=== PATIENT | male | born 1950 | race Caucasian/White ===

== ENCOUNTER 2023-03-27 06:44 | Day surgery (SDC) | payer OTHER, SELFPAY ==
[2023-03-27] VITALS (11 sets, daily range): BP systolic 121–142; BP diastolic 74–95; BMI 27.8
--- NOTE | 2023-03-27 07:14 | HP.FOC2 ---
Focused History & Physical
Chief Complaint
HPI:
Chief Complaint: Bilateral inguinal hernias
HPI / Indication for Planned Procedure: Patient is a 72-year-old male who recently underwent open umbilical hernia repair with mesh November 2022. He tolerated this procedure well without perioperative complication. Upon his postoperative recovery
he mentioned as an aside that he is having swelling in the bilateral inguinal regions. Physical examination confirmed the presence of a right and left inguinal hernia. He presents today for scheduled operative correction.
Relevant Past Medical History: Other (Hyperlipidemia, history of DC 1998, hypercholesterolemia, CAD,)
Relevant Social History: Negative and Tobacco Use (Former)
Relevant Family History: Negative
Relevant Past Surgical History: Positive for (Hemorrhoids, cardiac stent, open umbilical herniorrhaphy with mesh 12/12)
Review of Systems
Review of Pertinent Systems: All Systems Negative
Medication
See Medication form for detailed medications: Yes
Medication List (including Herbals & OTC):
aspirin 81 mg tablet,delayed release (Ecotrin Low Strength) 81 mg PO DAILY 02/17/16
carvedilol 3.125 mg tablet 3.125 mg PO BID 02/17/16
meloxicam 7.5 mg tablet 7.5 mg PO DAILY 02/17/16
omeprazole 20 mg capsule,delayed release 20 mg PO DAILY 02/17/16
rosuvastatin 40 mg tablet (Crestor) 40 mg PO HS 02/17/16
Medications Reviewed: Yes
Allergies and Reactions
Patient has Allergies: Yes
Noted Allergies and Reactions:
Allergy/AdvReac Type Severity Reaction Status Date / Time
Iodinated Contrast Media Allergy flushing, Verified 03/24/23 12:13
feeling hot
Pertinent Physical Exam
All Other Systems: Negative
Head/Neck: Normal
Lungs: Normal
Heart: Normal
Abdomen: Other (Bilateral inguinal hernias left larger than right)
Extremities: Normal
Neurological: Normal
Diagnosis / Assessment
72-year-old male presenting for scheduled operative correction symptomatic bilateral inguinal hernias
Plan / Procedure
Robotic assisted laparoscopic repair bilateral inguinal hernias with mesh
Anesthesia/Sedation to be done by Anesthesia Provider: Yes
[2023-03-27] MEDS: TYLENOL 1000 MG PO (08:08)
[2023-03-27] MEDS: NORMOSOL-R 1000 IV (08:14)
--- NOTE | 2023-03-27 09:44 | W.SUR.PREOP ---
Pre-Operative Surgical Note
-
I have examined this patient prior to the performance of the scheduled procedure.
The patient's condition is unchanged from the time of the current History and
Physical and the patient is able to undergo the scheduled procedure.
--- NOTE | 2023-03-27 11:41 | W.IMMPOSTOP ---
Addendum entered and electronically signed by Hilario Bhakta MD 03/29/23 08:19:
#[id number]
Original Note:
Surgical Immed Post Op Note
-
Primary Surgeon: Yony
Assisting Surgeon: Christina SINGER
Pre-op Diagnosis: Bilateral inguinal hernia; left recurrent
Post-op Diagnosis: Bilateral inguinal hernia; left recurrent
Procedure Performed: Robotic assisted laparoscopic repair bilateral inguinal hernias with mesh; 3D max large mid weight mesh
Anesthesia Type: GETA +0.25% Marcaine
Specimen / Cultures: None
Estimated Blood Loss: 8 mL
Complications: None immediate
Operative Findings: Recurrent left direct inguinal hernia. Initial right direct inguinal hernia. 3D max large mid weight mesh repair bilateral.
[2023-03-27] MEDS: SUBLIMAZE 25 MCG IV (11:55)
== END 2023-03-27 14:05 | disposition home or self-care (01) ==
LOC: SDS 06:44
PROVIDERS: ATTENDING PHYSICIAN Surgery
DX: K40.90 Unilateral inguinal hernia, without obstruction or gangrene, not specified as recurrent (principal); K40.91 Unilateral inguinal hernia, without obstruction or gangrene, recurrent
CPT/HCPCS: 49651; 49650; C1781

== ENCOUNTER 2023-05-02 23:44 | Inpatient (IN) | payer OTHER, SELFPAY ==
[2023-05-02] VITALS (7 sets, daily range): BP systolic 115–156; BP diastolic 72–99; BMI 28.5
[2023-05-02 19:16] LABS: % Basophils 0.2 % (0-2); % Eosinophils 0.7 % (0-6); % Immature Granulocytes 0.5 % (0-0.5); % Lymphocytes 13.7 % (20.5-51.1); % Monocytes 7.5 % (1.7-9.3); % Neutrophils 77.4 % (42.2-75.2); Absolute Eosinophils 0.1 10^3/uL (0-0.7); Absolute Immature Granulocytes 0.1 10^3/uL (0-0.05); Absolute Lymphocytes 1.5 10^3/uL (1.2-3.4); Absolute Monocytes 0.8 10^3/uL (0.1-0.6); Absolute Neutrophils 8.3 10^3/uL (1.4-6.5); Hematocrit 40.8 % (39.0-52.0); Hemoglobin 14.2 g/dL (13.0-18.0); Mean Corp Hgb Conc. 34.8 g/dL (33.0-37.0); Mean Corpuscular Hgb 30.7 pg (27.0-31.0); Mean Corpuscular Volume 88.1 fL (80.0-94.0); Mean Platelet Volume 10.3 fL (7.4-10.4); Nucleated Red Blood Cells % 0 % (-); Platelet Count 200 10^3/uL (130-400); Red Blood Cell Count 4.63 10^6/uL (4.70-6.10); Red Cell Dist. Width 12.8 % (11.5-14.5); White Blood Cell Count 10.7 10^3/uL (4.8-10.8)
[2023-05-02 19:37] LABS: ALT (SGPT) 33 U/L (0-50); AST (SGOT) 38 U/L (17-59); Albumin 4.4 g/dl (3.5-5.0); Alkaline Phosphatase 40 U/L (38-126); Blood Urea Nitrogen 22 mg/dl (9-20); Calcium 9.5 mg/dl (8.4-10.2); Carbon Dioxide 27 mmol/L (22-30); Chloride 101 mmol/L (98-107); Estimated Creatinine Clearance 55 ml/min; Glucose 107 mg/dl (70-99); Potassium 4.2 mmol/L (3.5-5.1); Sodium 135 mmol/L (135-145); Total Bilirubin 1.6 mg/dl (0.2-1.3); Total Protein 7.9 g/dl (6.3-8.2)
--- NOTE | 2023-05-02 19:51 | ED.GENMED ---
History of Present Illness
General
Chief Complaint: Chest Pain
Source: patient
Exam Limitations: none
Time Seen by Provider: 05/02/23 19:09
Travel History
Have you had any contact with someone who has COVID-19?: No
Do you have any symptoms of coronavirus? Fever > 100 degrees, chills, cough, shortness of breath, sore throat, loss of taste or smell, muscle aches, or headache?: No
History of Present Illness
History of Present Illness:
This is a 72 year old male that comes in with c/o chest pain. States that he was out doing yard work and he lifted something heavy. States that he was taking his mower apart. Sate that he started with pain in the center of his chest and then the
left chest area. States that he did not eat today and was not drinking any water. States that he did have breakfast. States that he took EMS it was a 7/10 when they got there and he was given Aspirin. Pain went down to a 3 and then he was given
Nitro X 1. States that he has a little something in the left lateral chest. States that he has chills a he had broken out in a sweat. State that he also felt slighly SOB. Denies any fever, abd pain, nausea, vomiting, diarrhea, headache, dizziness,
urinary burning.
Past History
Past History
ED Past Medical History: CAD, GERD, HTN, Hypercholesterolemia, ME and Other (Stomach Ulcers, DDD, Diverticulosis, )
ED Past Surgical History: Cardiac (Stents X 2), Orthopedic (Left shoulder surgery), Urological (Spermatic vein ligation) and Other ( hemorrhoids surgery, Hernia, )
Social History
Tobacco: Former smoker
Alcohol: Occasional
Personal:
Living: with family
Review of Systems
Review of Systems
All Other Systems: ROS reviewed and negative except as documented in HPI and ROS
Constitutional: Reports chills; Denies fever
EENT: Reports no symptoms
Respiratory: Reports trouble breathing; Denies cough
Cardiac: Reports chest pain
ABD/GI: Reports no symptoms; Denies abdominal pain, nausea, vomiting or diarrhea
: Reports no symptoms; Denies dysuria, frequency or urgency
Musculoskeletal: Reports no symptoms
Skin: Reports no symptoms
Neurological: Reports no symptoms; Denies dizzy or headache
Psychiatric: Reports no symptoms
Phy Exam
General Physical Exam
General Presentation: well appearing and no apparent distress
General age: appears stated age
General Skin: warm and dry
General Habitus: normal
General Mental: alert
General Hydration: dry mucous membranes
ENT Exam
ENT Exam: TM's normal, pharynx normal and neck supple
Eye Exam
Eye Exam: EOMI
Cardiovascular Exam
Cardiovascular Exam: regular rate/rhythm, no edema, no murmur and normal peripheral pulses
Pulmonary Exam
Pulmonary Exam: lungs clear, no respiratory distress, no rales, chest non tender, no crackles, no rhonchi, no wheezing and no cough
Gastrointestinal Exam
Gastrointestinal Exam: normal bowel sounds, non tender, soft, no organomegaly, no pulsatile mass and non distended
Musculoskeletal Exam
Musculoskeletal Exam: full ROM and no edema
Skin Exam
Skin Exam: normal color, warm/dry, no rash and no petechia
Psychiatric Exam
Psychiatric Exam: normal mood/affect
Scores
Heart Score for Chest Pain Patients
STEMI patient?: No
History: Moderately Suspicious
ECG: Normal
Age: >/= 65 years
Risk Factors: >/= 3 Risk Factors or History of CAD
Troponin: >/= 3 x Normal Limit
Heart Score for Chest Pain Patients: 7
Heart Score Risk: 72.7 % MACE over next 6 weeks
Course
Orders/Labs/Results
Orders:
Orders
05/02/23 Dinner
NPO
Allow oral meds: Yes
Allow clear liquids: No
NPO with Ice Chips: No
05/02/23 19:08
Electrocardiogram (*1) Urgent
Reason for Study: Chest Pain
EKG- Treatment ONCE
05/02/23 19:11
CMP [Comprehensive Metabolic Panel] Urgent
Complete Blood Count/With Diff Urgent
Troponin I Urgent
05/02/23 19:30
CR Chest - 2 Views Urgent
Comment:
Reason For Exam: Chest pain
05/02/23 19:31
EKG- Treatment ONCE
05/02/23 22:15
Electrocardiogram (*1) Urgent
Reason for Study: Chest Pain
Other Reason for Exam: Repeat with Troponin
05/02/23 22:18
Troponin I Urgent
05/02/23 23:13
Nitroglycerin Sublingual [Nitrostat (Sublingual)] 0.4 mg SL NOW STA
05/02/23 23:14
Nitroglycerin Sublingual [Nitrostat (Sublingual)] 0.4 mg .ROUTE .STK-MED ONE
05/02/23 23:18
Consult Cardiology [CARDIOLOGY CONSULT] Urgent
Consulting Provider: Ramiro Welch
Was physician already notified: Yes
05/02/23 23:27
Admit/Transfer Patient As Directed
Co-Sign Provider:
Level of Care: Inpatient admission
Assign to:: IVU
Physician / Group: kathy malagon
Diagnosis: nstemi
Reason for Hospitalization: nstemi
Expected length of stay greater than two midnights?: Yes
ELOS- Estimated Length of Stay in days: 4
I certify the patient meets the requirements for IP care: Yes
Code Status As Directed
Resuscitation Status: Full Code
05/02/23 23:32
Heparin 4,000 units IV NOW STA
05/02/23 23:45
Heparin 79148 Units/250 ml 25,000 units in 250 ml IV PER PROTOCOL
Weight to be used for heparin protocol in kilograms (kg):: 90.1
Protocol:: Cardiac Tx/Acute Coronary
PTT Goal Range to be used:: PTT 73 to 111 seconds
Order type:: Initial
INITIAL Infusion Dose (UNITS/KG/hr) & then follow protocol:: 12 units/kg/hr
Infusion Dose in UNITS/hr & then follow protocol (UNITS/hr):: 1,000
INFUSION RATE in mL/hr & then follow protocol (mL/hr):: 10
PTT less than or equal to 64 seconds:: Increase rate by 200 units/hr (+ 2 mL/hr)
PTT 64.1 to 72.9 seconds:: Increase rate by 100 units/hr (+ 1 mL/hr)
PTT 73 to 111 seconds:: Target Range. No change in rate.
PTT 111.1 to 130.9 seconds:: Decrease rate by 100 units/hr (- 1 mL/hr)
PTT 131 to 199.9 seconds:: HOLD for 1 hr. Then decrease rate by 200 units/hr (- 2 mL/hr)
PTT greater than or equal to 200 seconds:: HOLD for 2 hrs & Notify Provider. Then decrease by 200 units/hr (-
2 mL/hr)
Lab follow-up:: Each change, PTT q6h until 2 consecutive are therapeutic. Then PTT
daily.
05/05/23 11:00
DC Protocol for Telemetry ONCE
Abnormal Lab Results
05/02/23 05/02/23
19:11 22:18
RBC 4.63 L 10^6/uL
(4.70-6.10)
Abs Immat Gran (auto) 0.1 H 10^3/uL
(0-0.05)
Absolute Neuts (auto) 8.3 H 10^3/uL
(1.4-6.5)
Absolute Monos (auto) 0.8 H 10^3/uL
(0.1-0.6)
Neutrophils % 77.4 H %
(42.2-75.2)
Lymphocytes % 13.7 L %
(20.5-51.1)
BUN 22 H mg/dl
(9-20)
Glucose 107 H mg/dl
(70-99)
Total Bilirubin 1.6 H mg/dl
(0.2-1.3)
Troponin I 0.639 H* D ng/ml
05/02/23 19:11
05/02/23 19:11
Dehydration. Glucose nonfasting. Total pio slightly elevated. Troponin 0.020
Vital Signs
Initial and Last Documented VS:
Initial Vital Signs
Temp Pulse Resp BP Pulse Ox
98.0 F 103 18 156/75 98
05/02/23 19:09 05/02/23 19:09 05/02/23 19:09 05/02/23 19:09 05/02/23 19:09
Last Documented Vital Signs
Temp Pulse Resp BP Pulse Ox
98.0 F 103 18 156/75 98
05/02/23 19:09 05/02/23 19:09 05/02/23 19:09 05/02/23 19:09 05/02/23 19:24
MDM/Problems Addressed
Differential Diagnosis Includes:
ME, Musculoskeletal pain.
MDM/Problems Addressed:
This is a 72 year old male that comes in with c/o chest pain and SOB. States that he was working on his mower and he lifted something heavy. States that he started first with mid sternal chest pian and then it moved to the left chest area. Patient
was given Aspirin by EMS and one nitro and his pain was better.
Will check labs, Chest X-ray
Repeat ECG: rate 89, NSR, NOrmal axis, PVC, Normal QRS, negative for ischemia. checked by Dr Kiser
Back into see patient. Explained that his Second troponin is elevated and that he will need admission. States that he does not have pain but feels sore. Will try a Nitro at this time. Will admit. Hospitalist notified and also Tooth Clerk to see if
they would like Heparin. Will put extruder operator vertical on Consult
Chronic conditions affecting care: CAD
Acute Exacerbation and/or Progression of Chronic Illness: CAD
*Radiology
Radiology exam reviewed: radiology read reviewed (Chest-No acute cardiopulmonary process)
*Pulse Oximetry
Patient hypoxic: no
*EKG
Interpreted by ED Provider?: Yes
Heart Rate: 101
Rate: tachycardiac
Rhythm: sinus and PVC's
Bonnie: normal axis
Interval: normal interval
Ischemia: no ischemia
*Algebra Tutor Interpretation
Rate: tachycardiac
Heart Rate: 107
Rhythm: sinus tachycardia
*Critical Care Note
Total Time (30-74mins, 75-104mins- exclusive of procedures): Not Applicable
ED Attending Note
-
Portions of this chart may have been created with voice recognition software.� Occasional wrong word or��sound alike� substitutions may have occurred due to the inherent limitations of voice recognition software.
Discharge Plan
Departure
Patient Disposition: Admit
Date of Disposition: 05/02/23
Time of Disposition: 23:27
Admit to: Telemetry
Presentation/result/management discussed w/ accepting MD/DO: Hospitalist
Patient with high blood pressure during this ER visit?: Yes
Condition: Good
Covid-19: Not Applicable
Discharge Problem:
Elevated troponin, Non-ST elevated myocardial infarction (non-STEMI)
Interventions
Interventions:
*Risk Screen - Suicide Last Done: 05/02/23 19:09
*General Assessment Last Done: 05/02/23 19:09
*Neglect/Abuse Screening Last Done: 05/02/23 19:09
ED- Fall Risk Assessment Last Done: 05/02/23 19:09
*ED COVID-19 Vaccine History Last Done: 05/02/23 19:09
ED- Cardiac Assessment Last Done: 05/02/23 19:24
[2023-05-02 22:55] LABS: Troponin I 0.639 ng/ml
[2023-05-02] MEDS: NITROSTAT (SUBLINGUAL) 0.400000000000000022 MG SL (23:19)
--- NOTE | 2023-05-02 23:39 | HPS.HSE ---
Addendum entered and electronically signed by Kell Murray MD 05/02/23 23:42:
NPO for potential cath.
Original Note:
Family Physician
-
Family Physician: Andre Moreno
Chief Complaint
-
chest pain
History of Present Illness
72-year-old male past medical history of CAD status post stents in 1998, hypertension, GERD, hypercholesterolemia, stomach ulcers, arthritis, presenting with chest pain. He was out doing yard work and taking his lawnmower apart and started having
pain in the center of his chest on the left. Pain was initially in the center of his chest and sharp.. Pain on the left side described as an ache. He called EMS pain was described as 7 out of 10. He was given aspirin and nitro and pain went down
to 3 out of 10. He did have some sweating. He did feel slightly short of breath. Denies any nausea or vomiting, diarrhea, headache, dizziness or urinary symptoms. Denies any dizziness.
Medical History
Past Medical History
Past Medical History: Reports Other ( CAD status post stents in 1998, hypertension, GERD, hypercholesterolemia, stomach ulcers, arthritis)
Past Surgical History: Reports Other (Cardiac (Stents X 2), Orthopedic (Left shoulder surgery), Urological (Spermatic vein ligation) and Other ( hemorrhoids surgery, Hernia, ))
Social History
Tobacco: Non-smoker
Alcohol: Occasional
Drug: None
Family History
Family History: Not pertinent
Allergies / Home Medications
Allergies reflects when Allergies were last updated in [employer].
Home Medications with original date entered in [employer]
Allergy/Medication List:
Allergies
Allergy/AdvReac Type Severity Reaction Status Date / Time
Iodinated Contrast Media Allergy flushing, Verified 05/02/23 19:08
feeling hot
Home Medications
aspirin 81 mg tablet,delayed release (Ecotrin Low Strength) 81 mg PO DAILY 02/17/16
carvedilol 3.125 mg tablet 3.125 mg PO BID 02/17/16
meloxicam 7.5 mg tablet 7.5 mg PO DAILY 02/17/16
omeprazole 20 mg capsule,delayed release 20 mg PO DAILY 02/17/16
rosuvastatin 40 mg tablet (Crestor) 40 mg PO HS 02/17/16
Review of Systems
-
History Source: Patient
A 12 point ROS was completed and negative except as noted: Yes
Constitutional: Reports No Symptoms
EENT: Reports No Symptoms
Respiratory: Reports See HPI
Cardiac: Reports See HPI
Abdomen/GI: Reports No Symptoms
: Reports No Symptoms
Musculoskeletal: Reports No Symptoms
Skin: Reports No Symptoms
Neurological: Reports No Symptoms
Endocrine: Reports No Symptoms
Hematologic/Lymphatic: Reports No Symptoms
Psych: Reports No Symptoms
Physical Exam
Vital Signs
Vital Signs
Temp Pulse Resp BP Pulse Ox
98.0 F 103 18 156/75 98
05/02/23 19:09 05/02/23 19:09 05/02/23 19:09 05/02/23 19:09 05/02/23 19:24
Physical Exam
General: Well Developed, Well Nourished and No Apparent Distress
HEENT: NormoCephalic, Moist mucous membranes and Atraumatic
Respiratory: Clear
Cardiac: S1/S2 and Regular Rhythm; No Murmur or Rub
GI: Soft, Non Tender, Non Distended and Normal Bowel Sounds; No Organomegaly
Rectal: Deferred by Provider
Musculoskeletal: No Clubbing, No Cyanosis and No Edema
Skin: No Rash
Neuro: Nonfocal/grossly intact
Laboratory Results
-
05/02/23 19:11
05/02/23 19:11
Laboratory Results
Total Bilirubin 1.6 mg/dl (0.2-1.3) H 05/02/23 19:11
AST 38 U/L (17-59) 05/02/23 19:11
ALT 33 U/L (0-50) 05/02/23 19:11
Alkaline Phosphatase 40 U/L (38-126) 05/02/23 19:11
Troponin I 0.639 ng/ml H* D 05/02/23 22:18
Data Reviewed
-
Lab Data: Labs Reviewed by me
Old Records: Reviewed
Impression/Plan
-
IMPRESSION:
PLAN:
# NSTEMI
# History of CAD status post stents
-EKG shows sinus rhythm with PVCs, ST depressions in leads V5, V6
-Troponin 0.6
-Trend troponins
-Chest x-ray unremarkable
-Check echo
-prior echo shows EF 50%
-Check A1c and lipid panel
-Heparin drip
-Continue statin
-Continue Coreg
-Cardiology consulted
Essential hypertension
GERD
-Continue omeprazole
Hypercholesterolemia
-Continue statin
History of stomach ulcers
Arthritis
-Hold meloxicam
Full code
DVT prophylaxis�heparin drip
Regular diet
[2023-05-03] VITALS (14 sets, daily range): BP systolic 97–131; BP diastolic 72–95; BMI 27.7
[2023-05-03] MEDS: HEPARIN 4000 UNITS IV (00:06)
[2023-05-03] MEDS: HEPARIN 25000 UNITS/250 ML IV (00:07)
--- NOTE | 2023-05-03 01:47 | PTCARENOTE ---
Pt rec'd as new admit from ED on stretcher. Pt reports discomfort on left chest as an ache 1 out of 10. No nausea or diaphoresis. Heparin infusing at 1000 units/hr. Sinus on telemetry. adm hx taken. Pt aware of npo status after mn for cath.
[2023-05-03 05:24] LABS: APTT 55.8 Sec (23.4-35.0)
[2023-05-03 05:40] LABS: % Basophils 0.1 % (0-2); % Eosinophils 1.3 % (0-6); % Immature Granulocytes 0.3 % (0-0.5); % Lymphocytes 26.4 % (20.5-51.1); % Monocytes 9.8 % (1.7-9.3); % Neutrophils 62.1 % (42.2-75.2); Absolute Eosinophils 0.1 10^3/uL (0-0.7); Absolute Lymphocytes 1.9 10^3/uL (1.2-3.4); Absolute Monocytes 0.7 10^3/uL (0.1-0.6); Absolute Neutrophils 4.4 10^3/uL (1.4-6.5); Hematocrit 41.3 % (39.0-52.0); Hemoglobin 14.2 g/dL (13.0-18.0); Mean Corp Hgb Conc. 34.4 g/dL (33.0-37.0); Mean Corpuscular Volume 90.2 fL (80.0-94.0); Nucleated Red Blood Cells % 0 % (-); Platelet Count 203 10^3/uL (130-400); Red Blood Cell Count 4.58 10^6/uL (4.70-6.10); Red Cell Dist. Width 12.8 % (11.5-14.5); White Blood Cell Count 7.1 10^3/uL (4.8-10.8)
[2023-05-03 05:48] LABS: ALT (SGPT) 28 U/L (0-50); AST (SGOT) 34 U/L (17-59); Albumin 4.1 g/dl (3.5-5.0); Alkaline Phosphatase 40 U/L (38-126); Blood Urea Nitrogen 23 mg/dl (9-20); Calcium 9.5 mg/dl (8.4-10.2); Carbon Dioxide 27 mmol/L (22-30); Chloride 103 mmol/L (98-107); Estimated Creatinine Clearance 55 ml/min; Glucose 113 mg/dl (70-99); HDL Cholesterol 41 mg/dl; LDL Cholesterol, Calculated 62 mg/dl; Potassium 4.1 mmol/L (3.5-5.1); Sodium 139 mmol/L (135-145); Total Bilirubin 1.5 mg/dl (0.2-1.3); Total Cholesterol 129 mg/dl (50-199); Total Protein 7.2 g/dl (6.3-8.2); Triglyceride 132 mg/dl (10-149); Very Low Density Lipoprotein 26 mg/dl (0-30)
--- NOTE | 2023-05-03 07:35 | CON.CAR ---
Consultation
Consultation Request
Date/Time Consultation Performed: 05/03/23
Requesting Provider: Dr. Murray
Performing Provider: Tiffany Sparks PA-C for Dr. Mckinnon
Reason for Consultation: CP
Medical History
-
Chief Complaint: CP
History of Present Illness:
Patient is a 80-year-old male with past medical history of CAD with remote anterior TN resulting in BMS to LAD in 1998, HLD, history of umbilical hernia repair in 2022 as well as B/L hernia repair ~5 weeks ago who presents to [facility] for
evaluation of chest pain. He states due to his recent hernia repair he has been 'taking it easy.' Yesterday he was doing yard work including picking up sticks and mowing his yard. He was then working on his lawnmower and developed left-sided
chest discomfort. He reports associated shortness of breath and diaphoresis. Denies nausea, vomiting, radiation of pain to neck, jaw, back. He received aspirin at home, then when EMS arrived was given sublingual nitro x 1 with improvement in his
symptoms. He did have additional episode of chest discomfort overnight. He is currently pain-free on IV heparin.
PMH:
CAD with remote anterior TN resulting in BMS to LAD in 1998
HLD
history of umbilical hernia repair in 2022 as well as B/L hernia repair ~5 weeks ago
Past Medical History
Past Medical History: Other (in HPI)
Social History
Tobacco: Former Smoker
Alcohol: Occasional
Personal:
Living: With Family
Employment: Retired
Family History
Family History: CAD (in mother)
Allergies / Home Medications
Allergy/AdvReac Type Severity Reaction Status Date / Time
Iodinated Contrast Media Allergy flushing, Verified 05/02/23 19:08
feeling hot
Medication Instructions Recorded Confirmed Type
aspirin 81 mg tablet,delayed 81 mg PO DAILY 02/17/16 05/02/23 History
release (Ecotrin Low Strength)
carvedilol 3.125 mg tablet 3.125 mg PO BID 02/17/16 05/02/23 History
meloxicam 7.5 mg tablet 7.5 mg PO DAILY 02/17/16 05/02/23 History
omeprazole 20 mg capsule,delayed 20 mg PO DAILY 02/17/16 05/02/23 History
release
rosuvastatin 40 mg tablet (Crestor) 40 mg PO HS 02/17/16 05/02/23 History
Review of Systems
-
History Source: Patient
All other systems: Negative unless noted
Physical Exam
Vital Signs
Temp Pulse Resp BP Pulse Ox
98.3 F 82 16 97/73 95
05/03/23 07:09 05/03/23 07:09 05/03/23 07:09 05/03/23 04:50 05/03/23 07:09
Lab Results
05/03/23 05:01
Troponin I 1.500 ng/ml H* D 05/03/23 05:01
Physical Exam
General: No Apparent Distress and Comfortable
HEENT: Normocephalic, Anicteric and Moist Mucous Membranes
Respiratory: Clear and Non Labored Respirations
Cardiac: S1/S2 and Regular Rhythm
GI: Soft, Non Tender, Non Distended and Normal Bowel Sounds
Musculoskeletal: No Clubbing, No Cyanosis and No Edema
Skin: Warm and Dry
Neuro: AO x 3
Impression / Plan
-
Primary Inspector Barrel: Dr. Margarita Echevarria
Assessment:
Presentation with CP
NSTEMI
CAD with remote anterior TN resulting in BMS to LAD in 1998
HLD
history of umbilical hernia repair in 2022 as well as B/L hernia repair ~5 weeks ago
Echo 05/2020: EF 50%, hypokinetic apex along anterior septum, no significant valvular disease
Lexiscan nuclear stress test 05/2020: Fixed defect in apical septal, apical anterior, apical lateral, apex and apical inferior segments consistent with prior infarction, EF 42%, moderate risk study, no change compared to prior from 2017
Plan:
-Patient presented to [facility] for evaluation of chest pain while completing yard work yesterday
-He is ruled in for NSTEMI with troponin thus far of 1.5. Trend to peak
-EKG SR with PVCs, no acute ST abnormalities
-CXR without acute abnormalities
-Currently chest pain-free
-Continue IV heparin
-N.p.o. for cardiac catheterization today. Procedure explained to patient at bedside
-of note, he reports a history of flushing with IV contrast in past however no rash, itching, SOB.
-Cr stable at 1.3
-Check echo
-Continue aspirin, Crestor, carvedilol
-d/w nursing
Data Reviewed
-
EKG: Tracing Personally Visualized and interpreted
Radiology: Report Reviewed by me
Medical Tests (Nuc Med, Echo etc): Report Reviewed by me
Labs: Labs Reviewed by me
Old Records: Reviewed
--- NOTE | 2023-05-03 07:49 | PTCARENOTE ---
Patient received from hose tender resting comfortably in bed, AAO X 3, denies pain. NSR via cm. Heparin infusing @ 1200units/hr. Patient updated to plan of care for the day including pending cardiac catheterization, in agreement. Remains NPO.
Tiffany Sparks PA-C, to bedside, updated to status. See work list for full assessment and interventions performed.
[2023-05-03] MEDS: ASPIR LOW (ENTERIC COATED) 81 MG PO (08:31)
[2023-05-03] MEDS: COREG 3.125 MG PO ×2 (08:31→20:05)
[2023-05-03] MEDS: PROTONIX 40 MG PO (08:31)
--- NOTE | 2023-05-03 09:20 | CARDSERVLU ---
Echocardiogram with Lumason completed after protocol screening completed. Allergies verified.
Patent IV site: _L AC____
IV site flushed with 0.9% NaCl pre and post administration.
Diluted bolus method utilized to enhance visualization of ventricular ames.
Total volume given: __2.5__ mL
Patient tolerated all procedures well without complications.
[2023-05-03 09:25] LABS: Glycohemoglobin (HgbA1c) 5.8 % (4.0-5.6)
--- NOTE | 2023-05-03 10:04 | CM ---
Addendum entered by Tracy Cabrales 05/03/23 14:20:
Telephone call to Trudy,([phone]) to check on co-pay for Brilinta 90 mg po bid. His co-pay for Brilinta 90 mg po bid is $19,35 for a month and $40.00 for a ninety day supply. He can use the one month free coupon card. Placed the coupon in h is
red discharge folder.
Original Note:
Reviewed chart. Met with Mr. Alcantar to review discharge plans. He states prior to admission he resides with his spouse in a spilt-level home with four steps to enter. He state he has eight steps to get to bedroom/full bathroom. He states he has
four steps to get to the lower level. He states prior to admission he was independent with ambulation and adls. He states he does not have any DME in the home He states he has a prescription plan and uses [facility]. Medical work-up in
progress. The discharge plan is to return home with his spouse when medically stable.
--- NOTE | 2023-05-03 11:23 | PTCARENOTE ---
VS obtained, assessment unchanged. Patient resting comfortably, awaiting CCL.
[2023-05-03 11:55] LABS: APTT 59.6 Sec (23.4-35.0)
--- NOTE | 2023-05-03 12:56 | W.PN.HOSP.TC ---
Today's Communication/Plan
-
Monitor vital signs
see plan
Continue with heparin drip
Cardiac catheterization today
Assessment / Plan
Assessment / Plan
General: Well Developed, Well Nourished and No Apparent Distress
HEENT: NormoCephalic, Moist mucous membranes and Atraumatic
Respiratory: Clear
Cardiac: S1/S2 and Regular Rhythm; No Murmur or Rub
GI: Soft, Non Tender, Non Distended and Normal Bowel Sounds; No Organomegaly
Rectal: Deferred by Provider
Musculoskeletal: No Clubbing, No Cyanosis and No Edema
Skin: No Rash
Neuro: Nonfocal/grossly intact
NSTEMI
# History of CAD status post stents
-EKG shows sinus rhythm with PVCs, ST depressions in leads V5, V6
-troponins peaked 1.5
-Chest x-ray unremarkable
-Check echo 05/02 with EF 49%. Apical septum, apex, apical inferior and apical anterior and mid anteroseptum moderate to severe hypokinesis. Stage II diastolic dysfunction
-Check A1c 5.8
-cw Heparin drip
-Continue statin
-Continue Coreg
-Cardiology following, plan for cardiac catheterization 05/02
Essential hypertension
GERD
-Continue omeprazole
Prediabetes
A1c 5.8; would need lifestyle modifications
Hypercholesterolemia
-Continue statin
History of stomach ulcers
Arthritis
-Hold meloxicam
Full code
DVT prophylaxis�heparin drip
Anticipated Discharge: 24 - 48 hours
Subjective/Interval History
-
Date of Service: May 03, 2023
denies nausea
Objective Data
-
Labs:
Laboratory Results
05/03/23 05/03/23 05/03/23
00:59 05:00 05:01
WBC 7.1 Cancelled
Hgb 14.2 Cancelled
Hct 41.3 Cancelled
Plt Count 203 Cancelled
APTT Cancelled 55.8 H
Sodium 139
Potassium 4.1
Chloride 103
Carbon Dioxide 27
BUN 23 H
Creatinine 1.3
Glucose 113 H
Calcium 9.5
Total Bilirubin 1.5 H
AST 34
ALT 28
Alkaline Phosphatase 40
05/03/23 05/03/23
11:29 18:00
WBC
Hgb
Hct
Plt Count
APTT 59.6 H Pending
Sodium
Potassium
Chloride
Carbon Dioxide
BUN
Creatinine
Glucose
Calcium
Total Bilirubin
AST
ALT
Alkaline Phosphatase
Vital Signs:
Vital Signs
Temp Pulse Resp BP Pulse Ox
97.8 F 68 16 120/81 97
05/03/23 11:38 05/03/23 12:45 05/03/23 11:38 05/03/23 11:15 05/03/23 11:38
I&O
05/02/23 05/03/23 05/04/23
06:59 06:59 06:59
Intake Total 62 / 62
Balance 62 / 62
--- NOTE | 2023-05-03 12:59 | PTCARENOTE ---
electronic lab technician RN's to bedside, heparin infusion discontinued. Patient to CCL via bed w/labeling strategist staff.
[2023-05-03 13:30] LABS: ACT-LR - POC 144 Seconds (116-155)
[2023-05-03 13:53] LABS: ACT-LR - POC 223 Seconds (116-155)
[2023-05-03 14:02] LABS: ACT-LR - POC 271 Seconds (116-155)
[2023-05-03 14:15] LABS: ACT-LR - POC 265 Seconds (116-155)
[2023-05-03] MEDS: NSS 1000 IV (14:54)
--- NOTE | 2023-05-03 15:07 | PTCARENOTE ---
Patient received from CCL s/p stent to prox LAD via R radial approach. R band in place, no bleeding or hematoma noted, distal digits warm and pink, SaO2 96% on RA. to bedside. Patient resting comfortably, denies pain.
--- NOTE | 2023-05-03 16:32 | PTCARENOTE ---
Assumed care of Pt at approx 1600, A,A+O, offers no complaints. R band intact to R radial puncture site. + radial pulse, good CMS to R fingers.
--- NOTE | 2023-05-03 17:54 | ITS.CL.CATH ---
B[facility]acker - Catheterization
Cardiac Catheterization
Procedure Report:
LEFT HEART CATHETERIZATION AND CORONARY INTERVENTION
Date of Procedure: May 03, 2023
Referring: Abril López MD, [facility], [facility]
PROCEDURES:
1. Left heart catheterization, coronary angiogram.
2. Ultrasound-guided access.
3. Successful percutaneous coronary artery intervention to 2 serial proximal to mid LAD stenosis with one 3.5 x 28 mm Xience alicia point drug-eluting stent, successfully postdilated using IVUS guidance with a 4.0 x 20 mm NC trek balloon at 16 horace
distally and a 4.5 x 12 mm NC trek balloon at 18 horace proximally with an excellent angiographic and IVUS guided result.
INDICATION: NSTEMI
ACCESS: Right radial artery, 6 Telugu sheath, under ultrasound guidance
HEMODYNAMICS : (mmHg)
AO (s/d) : 117/79
LV (s/d) : 115/8
LVEDP : 10
CORONARY FINDINGS
DOMINANCE: Left
LEFT MAIN: The left main artery is a large-caliber vessel which gives rise to the left into descending artery and the left circumflex artery. There is mild diffuse atherosclerotic plaque.
LEFT ANTERIOR DESCENDING: The left anterior descending artery is a medium to large caliber vessel which gives rise to 2 major diagonal branches. There are 2 serial lesions in the proximal LAD, 170 to 80% proximally and another 70% distally. These
were thought to be the culprit of presenting NSTEMI given wall motion abnormalities noted on echo and thus decision was made to intervene on this. There is also 40 to 50% in-stent restenosis in the mid to distal LAD stents from 1998
CIRCUMFLEX: The left circumflex artery is a medium to large caliber dominant vessel which gives rise to 1 medium caliber OM1 and multiple small to medium caliber left posterolateral branches and the left posterior descending artery. OM1 has a 50 to
60% stenosis in the proximal portion
RIGHT CORONARY ARTERY: The right coronary artery is a small to medium caliber nondominant vessel with moderate diffuse atherosclerotic plaque.
I reviewed the coronary angiogram while patient was on the table with one of my senior interventional partners, Dr. Praveen Ireland given no specific lesion appeared to be an obvious culprit for NSTEMI. Upon my review especially with the
echocardiogram showing wall motions in the LAD territory, we concluded that the 2 serial lesions in the proximal LAD are probable culprit and thus decision was made to move forward with percutaneous coronary artery intervention onto this.
CORONARY INTERVENTION: The left coronary artery was selectively engaged using a 6 Telugu EBU 3.5 guide catheter. A 190 cm high torque floppy wire was carefully advanced across the proximal LAD stenoses and advanced into the distal LAD. The
proximal LAD stenoses were predilated using a 3.0 x 20 mm semi-compliant balloon. Both of these lesions were stented using one 3.5 x 28 mm Xience alicia point drug-eluting stent which was postdilated successfully using IVUS guidance with a 4.0 x 20 mm
NC trek balloon at 16 horace distally and a 4.5 x 12 mm NC trek balloon at 18 horace proximally with an excellent angiographic result and MIRIAN-3 flow. The patient was loaded with 20 mg of Brilinta at the end of the case given he presented with an NSTEMI.
No acute complications were noted.
SEDATION: 85 minutes of procedural sedation was utilized. An independent medical dosimetrist was present to assist with and help manage the patient's level of consciousness and physiologic status.
RADIATION SUMMARY: Fluoro Time (min): 15.1, Dose (mGy): 998.97, DAP (Gy.cm2) : 80.6
Closure Device: Vascular band over right radial artery, 11 cc of air.
CONCLUSIONS
1. Left dominant circulation.
2. Successful percutaneous coronary artery intervention to 2 serial proximal to mid LAD stenosis with one 3.5 x 28 mm Xience alicia point drug-eluting stent, successfully postdilated using IVUS guidance with a 4.0 x 20 mm NC trek balloon at 16 horace
distally and a 4.5 x 12 mm NC trek balloon at 18 horace proximally with an excellent angiographic and IVUS guided result.
3. There are 2 serial lesions in the proximal LAD, 170 to 80% proximally and another 70% distally. These were thought to be the culprit of presenting NSTEMI given wall motion abnormalities noted on echo and thus decision was made to intervene on
this. There is also 40 to 50% in-stent restenosis in the mid to distal LAD stents from 1998.
4. OM1 has a 50 to 60% stenosis in the proximal portion.
5. Normal LVEDP.
RECOMMENDATIONS
1. Wean radial band per protocol.
2. Uninterrupted dual antiplatelet therapy with daily baby aspirin and Brilinta 90 mg twice daily, high intensity statin and beta-eliu as tolerated.
3. Aggressive management of cardiovascular risk factors.
4. Referral for outpatient cardiac rehab.
Copy to: Abril López MD, FACC, [facility]
--- NOTE | 2023-05-03 20:00 | PTCARENOTE ---
Assumed care of patient. NSR. VSS. All air removed out of TR band (right radial) by off going nurse at 1900. TR band removed at 1999. Site cleansed. Sterile 2x2 placed with tegaderm. + pulse, no hematoma, warm, and good sensation. IVF stopped.
Assessment per nursing flowsheet. Pt independent in room. Reviewed brilinta and coreg.
[2023-05-03] MEDS: BRILINTA 90 MG PO (20:05)
[2023-05-03] MEDS: CRESTOR 40 MG PO (22:02)
[2023-05-04 03:23] VITALS: BP 121/69
[2023-05-04 03:58] LABS: Hematocrit 39.4 % (39.0-52.0); Hemoglobin 13.6 g/dL (13.0-18.0); Mean Corp Hgb Conc. 34.5 g/dL (33.0-37.0); Mean Corpuscular Hgb 30.7 pg (27.0-31.0); Mean Corpuscular Volume 88.9 fL (80.0-94.0); Mean Platelet Volume 10.7 fL (7.4-10.4); Platelet Count 194 10^3/uL (130-400); Red Blood Cell Count 4.43 10^6/uL (4.70-6.10); Red Cell Dist. Width 13.1 % (11.5-14.5); White Blood Cell Count 6.3 10^3/uL (4.8-10.8)
[2023-05-04 04:23] LABS: Blood Urea Nitrogen 19 mg/dl (9-20); Calcium 8.6 mg/dl (8.4-10.2); Carbon Dioxide 24 mmol/L (22-30); Chloride 107 mmol/L (98-107); Estimated Creatinine Clearance 59 ml/min; Glucose 109 mg/dl (70-99); HDL Cholesterol 37 mg/dl; LDL Cholesterol, Calculated 62 mg/dl; Potassium 4.3 mmol/L (3.5-5.1); Sodium 136 mmol/L (135-145); Total Cholesterol 124 mg/dl (50-199); Triglyceride 129 mg/dl (10-149); Very Low Density Lipoprotein 25 mg/dl (0-30); eGFR > 60.00
--- NOTE | 2023-05-04 07:05 | PTCARENOTE ---
Assumed care of patient. Patient ambulating in room. Batteries changed in tele box. Instructed to order breakfast. Agree with previous assessment. Patient's questions answered. Radial site CDI. Call light in reach. Instructed patient to call
with any needs.
--- NOTE | 2023-05-04 07:36 | W.PN.CARDCBS ---
Addendum entered and electronically signed by Abril López MD 05/04/23 11:23:
I saw and examined the patient.
The Spreading Machine Operator's note was reviewed and I agree with the note.
Comment: Overall patient is doing well and does not offer any significant complaints today. Upon walking this morning he did have transient lightheadedness which since then resolved. Blood pressures have been stable. No recurrent chest discomfort
or shortness of breath.
No major events noted on telemetry except 1 short 4 beat run of NSVT. Vital signs and lab work reviewed. Patient is a well-appearing gentleman in no acute distress, normal S1 and S2, no murmurs, rubs or gallops, lungs are clear to auscultation
bilaterally, right radial arterial access site with dressing in place which is clean, dry and intact without evidence of hematoma or bruit. Warm extremities without significant edema.
Recommendations:
1. Status post LAD PCI in the setting of NSTEMI, continue uninterrupted dual antiplatelet therapy with daily baby aspirin and Brilinta along with high intensity statin and beta-eliu.
2. Echocardiogram with mildly reduced LV systolic function, LVEF of 45 to 50% with wall motion abnormalities in the LAD territory. Given transient lightheadedness this morning, we will not further uptitrate goal-directed medical therapy for mild
ischemic cardiomyopathy however upon follow-up consideration should be made to add an GABRIELLE inhibitor or ARB plus minus Aldactone plus minus increasing carvedilol dose plus minus SGLT2 inhibitor depending on what hemodynamics will allow.
3. Referral for outpatient cardiac rehab.
4. Aggressive management of cardiovascular risk factors.
5. Stable for discharge from a cardiac standpoint with plan for follow-up with outpatient cardiology.
Discussed plan in detail with patient and his , Diamond over the phone. Communicated results of the heart catheterization with his primary outpatient diamond grinder yesterday evening.
Abril López MD, [facility]
Original Note:
Today's Communication / Plan
-
s/p LAD PCI x2
continue asa, brilinta, coreg, crestor, protonix
cardiac rehab
OP cardiac follow up
Impression / Plan
-
Primary Quality Control Analyst: Dr. Margarita Echevarria
Assessment:
Presentation with CP
NSTEMI, peak trop 1.5 s/p LAD PCI x2 05/03/23
CAD with remote anterior CT resulting in BMS to LAD in 1998
HLD
history of umbilical hernia repair in 2022 as well as B/L hernia repair ~5 weeks ago
Echo 05/2020: EF 50%, hypokinetic apex along anterior septum, no significant valvular disease
Lexiscan nuclear stress test 05/2020: Fixed defect in apical septal, apical anterior, apical lateral, apex and apical inferior segments consistent with prior infarction, EF 42%, moderate risk study, no change compared to prior from 2016
ECHO 05/03/23: EF 49%, apical septum, apex, apical inferior, apical anterior, mid anteroseptum with mod to severe hypokinesis, stage 2 diastolic dysfunction, mildly dilated aortic root, no sig valvular disease
Plan:
-Patient presented to [facility] for evaluation of chest pain while completing yard work yesterday
-He ruled in for NSTEMI with peak trop 1.5.
-s/p cardiac cath 05/02 resulting in LAD PCI x2
-echo with results as above, stable compared to prior
-Cr stable at 1.2
-Continue aspirin, brilinta, carvedilol
-LDL 62. continue crestor 40mg QPM
-stop meloxicam
-cardiac rehab
-ok for DC to home later today from cardiac standpoint
-OP cardiac follow up arranged
-d/w nursing
Progress Note - Quality Control Analyst
Subjective
Date of Service: May 04, 2023
No chest pain, shortness of breath, palpitations overnight
Objective
Labs:
05/04/23 03:30
05/04/23 03:30
Labs
Hgb 13.6 g/dL (13.0-18.0) 05/04/23 03:30
Hct 39.4 % (39.0-52.0) 05/04/23 03:30
Plt Count 194 10^3/uL (130-400) 05/04/23 03:30
APTT Cancelled 05/03/23 18:00
Sodium 136 mmol/L (135-145) 05/04/23 03:30
Potassium 4.3 mmol/L (3.5-5.1) 05/04/23 03:30
BUN 19 mg/dl (9-20) 05/04/23 03:30
Creatinine 1.2 mg/dL (0.7-1.3) 05/04/23 03:30
Glucose 109 mg/dl (70-99) H 05/04/23 03:30
Troponins
05/02/23 05/02/23 05/03/23
19:11 22:18 05:01
Troponin I 0.020 0.639 H* D 1.500 H* D
05/03/23
11:29
Troponin I 1.380 H*
Vital Signs and I&O:
Vital Signs
Temp Pulse Resp BP Pulse Ox
97.8 F 61 16 121/69 96
05/04/23 04:07 05/04/23 04:00 05/04/23 04:07 05/04/23 03:23 05/04/23 04:07
Vital Signs
Temp Pulse Resp BP Pulse Ox
97.8 F 61 16 121/69 96
05/04/23 04:07 05/04/23 04:00 05/04/23 04:07 05/04/23 03:23 05/04/23 04:07
Intake & Output
05/01/23 05/02/23 05/03/23 05/04/23
07:59 07:59 07:59 07:59
Intake Total 443 / 443
Balance 443 / 443
Physical Exam
Physical Exam
GEN: No distress, awake, alert, oriented x3
HEENT: supple, anicteric, mmm, eomi
LUNGS: CTA B/L, no wheezes/rales
CV: Reg, S1/S2, no murmur
ABD: soft, BS+, NT/ND
EXT: No cyanosis, clubbing, edema
NEURO: Gross non-focal
SKIN: Warm, pink, dry. No rash. R radial site c/d/i
[2023-05-04 07:46] VITALS: BP 114/77
[2023-05-04] MEDS: BRILINTA 90 MG PO (08:10)
[2023-05-04] MEDS: ASPIR LOW (ENTERIC COATED) 81 MG PO (08:10)
[2023-05-04] MEDS: PROTONIX 40 MG PO (08:10)
[2023-05-04] MEDS: COREG 3.125 MG PO (08:10)
[2023-05-04 11:45] VITALS: BP 116/85
--- NOTE | 2023-05-04 12:04 | W.PN.HOSP.TC ---
Today's Communication/Plan
-
Monitor vital signs see plan
Continue with aspirin and Brilinta
Stop meloxicam
DC today
time of discharge 37 minutes
Assessment / Plan
Assessment / Plan
General: Well Developed, Well Nourished and No Apparent Distress
HEENT: NormoCephalic, Moist mucous membranes and Atraumatic
Respiratory: Clear
Cardiac: S1/S2 and Regular Rhythm; No Murmur or Rub
GI: Soft, Non Tender, Non Distended and Normal Bowel Sounds; No Organomegaly
Rectal: Deferred by Provider
Musculoskeletal: No Clubbing, No Cyanosis and No Edema
Skin: No Rash
Neuro: Nonfocal/grossly intact
NSTEMI
# History of CAD status post stents
-EKG shows sinus rhythm with PVCs, ST depressions in leads V5, V6
-troponins peaked 1.5
-Chest x-ray unremarkable
-Check echo 05/02 with EF 49%. Apical septum, apex, apical inferior and apical anterior and mid anteroseptum moderate to severe hypokinesis. Stage II diastolic dysfunction
-Check A1c 5.8
off hep gtt
-Continue statin
-Continue Coreg
-Cardiology following,s/p cardiac catheterization 05/02 resulting in LAD PCI x2
Pain now on aspirin, Brilinta
Essential hypertension
GERD
-Continue omeprazole
Prediabetes
A1c 5.8; would need lifestyle modifications
Hypercholesterolemia
-Continue statin
History of stomach ulcers
Arthritis
-stop meloxicam
Full code
DVT prophylaxis
Anticipated Discharge: Today
Subjective/Interval History
-
Date of Service: May 04, 2023
denies chest pain
Objective Data
-
Labs:
Laboratory Results
05/04/23
03:30
WBC 6.3
Hgb 13.6
Hct 39.4
Plt Count 194
Sodium 136
Potassium 4.3
Chloride 107
Carbon Dioxide 24
BUN 19
Creatinine 1.2
Glucose 109 H
Calcium 8.6
Vital Signs:
Vital Signs
Temp Pulse Resp BP Pulse Ox
98.4 F 71 20 116/85 97
05/04/23 11:43 05/04/23 11:45 05/04/23 11:43 05/04/23 11:45 05/04/23 11:43
I&O
05/03/23 05/04/23 05/05/23
06:59 06:59 06:59
Intake Total 443 / 443
Balance 443 / 443
--- NOTE | 2023-05-04 12:12 | W.DCSUMMARY ---
Discharge Summary
Discharge Data
Date of Admission: 05/02/23
Date of Discharge: 05/04/23
-
Pending Results: No
Hospital Course
72-year-old male with past medical history of CAD, GERD, essential hypertension, hyperlipidemia, PUD, arthritis came to the hospital with chest discomfort. EKG on admission was consistent with ST depressions. Patient was admitted for non-ST
elevation myocardial infarction. Echocardiogram was done which showed EF of 49% with apical and septal hypokinesis. Patient went for cardiac catheterization resulting in LAD PCI x 2. Patient was seen by cardiology throughout hospitalization.
Initially patient was on heparin drip. Postcatheterization patient was started on Brilinta along with his aspirin. After catheterization his symptoms improved. Once patient started to feel better, he was then discharged home with instructions to
follow-up with all his physicians outpatient.
Discharge Plan
-
Patient Disposition: Home (Routine Discharge)
Discharge Diagnosis/Procedures: Non-ST elevation myocardial infarct, Angioplasty with stent to LAD
Ischemic cardiomyopathy
Prediabetes
Diet: Low Cholesterol
Activity: As tolerated
Driving Restrictions: No driving for 24 hours
Bathing Restrictions: None
Other Services: Cardiac Rehab
Stand Alone Forms: DC Instructions- Cath/EP Lab
Referrals:
[facility]. Cardiac Rehab [Outside] - 05/31/23 10:00 am
(Cardiac Rehab Orientation appointment is on 05/31/23 (W) at 10:00 am
The Cardiac Rehab gym is located on the first floor of the [facility].)
Margarita Ehcevarria MD [Active] - 07/13/23 11:20 am
Andre Moreno MD [Family Provider] - in less than 1 week
Additional Discharge Medication Instructions: Stop meloxicam
Prescriptions:
New
Brilinta 90 mg Tablet
90 mg PO BID Qty: 60 0RF
nitroglycerin 0.4 mg Tablet, Sublingual
0.4 mg sublingual [id number] PRN (Reason: chest pain) Qty: 30 0RF
Continued
aspirin [Ecotrin Low Strength] 81 MG tablet,delayed release (DR/EC)
81 mg PO DAILY
carvedilol 3.125 MG tablet
3.125 mg PO BID
omeprazole 20 MG capsule,delayed release(DR/EC)
20 mg PO DAILY
rosuvastatin [Crestor] 40 MG tablet
40 mg PO HS
Discontinued
meloxicam 7.5 MG tablet
7.5 mg PO DAILY
Discharge Orders:
Discharge Patient (As Directed); Ordered 05/04/23
Ordered By: Luis Alberto Jaramillo
Care Plan Goals
Care Plan Goals:
Problem: Readiness for enhanced knowledge related to diagnosis and treatment plan
Goal: Understand your diagnosis and treatment plan needs, including medications if applicable.
Instructions: Know your diagnosis, underlying causes and treatment plan options, including medications if applicable. Consult with your health care team to learn about your diagnosis and treatment plan, including medications if applicable.
Discharge Date and Time
Discharge Date/Time: 05/04/23 13:16
== END 2023-05-04 13:16 | disposition home or self-care (01) | DRG 322 ==
LOC: IVU 23:44
PROVIDERS: Clinical Nurse Specialist Family Health; Internal Medicine Cardiovascular Disease; Nurse Practitioner Adult Health; ADMITTING PHYSICIAN Hospitalist; ATTENDING PHYSICIAN Internal Medicine; EMERGENCY PHYSICIAN Emergency Medicine; FAMILY PHYSICIAN Family Medicine; OTHER PHYSICIAN Internal Medicine Interventional Cardiology
PROC: 4A023N7 Measurement of Cardiac Sampling and Pressure, Left Heart, Percutaneous Approach (ICD-10-PCS; 2023-05-03)
PROC: 027034Z Dilation of Coronary Artery, One Artery with Drug-eluting Intraluminal Device, Percutaneous Approach (ICD-10-PCS; 2023-05-03)
PROC: B240ZZ3 Ultrasonography of Single Coronary Artery, Intravascular (ICD-10-PCS; 2023-05-03)
PROC: B2151ZZ Fluoroscopy of Left Heart using Low Osmolar Contrast (ICD-10-PCS; 2023-05-03)
PROC: B2111ZZ Fluoroscopy of Multiple Coronary Arteries using Low Osmolar Contrast (ICD-10-PCS; 2023-05-03)
DX: I21.4 Non-ST elevation (NSTEMI) myocardial infarction (principal); T82.855A Stenosis of coronary artery stent, initial encounter; I25.10 Atherosclerotic heart disease of native coronary artery without angina pectoris; K21.9 Gastro-esophageal reflux disease without esophagitis; E78.00 Pure hypercholesterolemia, unspecified; M19.90 Unspecified osteoarthritis, unspecified site; I10 Essential (primary) hypertension; I25.5 Ischemic cardiomyopathy; R73.03 Prediabetes; Y83.1 Surgical operation with implant of artificial internal device as the cause of abnormal reaction of the patient, or of later complication, without mention of misadventure at the time of the procedure; I25.2 Old myocardial infarction; Z79.82 Long term (current) use of aspirin; Z79.899 Other long term (current) drug therapy; Z82.49 Family history of ischemic heart disease and other diseases of the circulatory system; Z87.11 Personal history of peptic ulcer disease; Z87.891 Personal history of nicotine dependence; Z95.5 Presence of coronary angioplasty implant and graft
CPT/HCPCS: 71046; 76937; 80048; 80053; 80061; 83036; 84484; 85025; 85027; 85347; 85730; 92978; 93005; 93306; 93458; 99152; 99153; 99285; C1725; C1753; C1769; C1874; C1894; C9600; Q9950; Q9967

== ENCOUNTER 2023-06-19 09:58 | Outpatient (RCR) | payer OTHER, SELFPAY | END 2023-06-19 23:59 | disposition home or self-care (01) | LOC: CRHB 09:58 | PROVIDERS: ATTENDING PHYSICIAN Internal Medicine Cardiovascular Disease; FAMILY PHYSICIAN Family Medicine | DX: I21.4 Non-ST elevation (NSTEMI) myocardial infarction (principal); Z95.5 Presence of coronary angioplasty implant and graft; I25.10 Atherosclerotic heart disease of native coronary artery without angina pectoris | CPT/HCPCS: G0422; G0423 ==

== ENCOUNTER 2023-07-21 11:37 | Outpatient (RCR) | payer OTHER, SELFPAY | END 2023-07-21 23:59 | disposition home or self-care (01) | LOC: CRHB 11:37 | PROVIDERS: ATTENDING PHYSICIAN Internal Medicine Cardiovascular Disease; FAMILY PHYSICIAN Family Medicine | DX: I21.4 Non-ST elevation (NSTEMI) myocardial infarction (principal); Z95.5 Presence of coronary angioplasty implant and graft; I25.10 Atherosclerotic heart disease of native coronary artery without angina pectoris | CPT/HCPCS: G0422; G0423 ==

== ENCOUNTER 2023-08-16 16:42 | Outpatient (RCR) | payer OTHER, SELFPAY | END 2023-08-16 23:59 | disposition home or self-care (01) | LOC: CRHB 16:42 | PROVIDERS: ATTENDING PHYSICIAN Internal Medicine Cardiovascular Disease; FAMILY PHYSICIAN Family Medicine | DX: I25.10 Atherosclerotic heart disease of native coronary artery without angina pectoris (principal); Z95.5 Presence of coronary angioplasty implant and graft; I25.2 Old myocardial infarction | CPT/HCPCS: G0422; G0423 ==

== ENCOUNTER → 2024-05-15 11:07 | Outpatient (REF) | payer OTHER, SELFPAY | LOC: HWRCS 11:07 | PROVIDERS: ATTENDING PHYSICIAN Internal Medicine Cardiovascular Disease; FAMILY PHYSICIAN Family Medicine | DX: I25.10 Atherosclerotic heart disease of native coronary artery without angina pectoris (principal) | CPT/HCPCS: 93306 ==

== ENCOUNTER 2024-10-14 15:31 | Inpatient (IN) | payer OTHER, SELFPAY ==
[2024-10-14] VITALS (8 sets, daily range): BP systolic 109–146; BP diastolic 71–95; BMI 26.0; BMI 24.9
--- NOTE | 2024-10-14 13:10 | ED.GENMED ---
History of Present Illness
<Marianela Doll PA-C - Last Filed: 10/14/24 17:50>
General
Chief Complaint: Chest Pain
Source: patient
Exam Limitations: none
Time Seen by Provider: 10/14/24 12:53
Nursing documentation reviewed up to this point in time: agreed with
History of Present Illness
History of Present Illness:
Patient is a 74-year-old male with history of CAD s/p stent placement, hyperlipidemia who presents to the emergency department for evaluation of chest pain. Patient reports onset of chest pressure earlier today while at the gym approximately 20
minutes following a 50-minute cardiac workout on the elliptical. He describes a pressure in his mid chest without radiation to arm, neck, back. He reports mild associated lightheadedness however denies shortness of breath, diaphoresis, nausea.
He stopped his workout early and had at home where he took 1 sublingual nitroglycerin with improvement chest pain. He did contact his modeler office who recommended evaluation in the emergency department.
Of note�patient does report similar symptoms about 4 times this past month following cardio workouts at the gym. He states he goes to the gym 5 days a week and does cardio Monday, Monday, Monday.
By my assessment�patient is chest pain-free.
He does have a history of HI x 2 in the past with stent placement, most recently in April 2023. His primary modeler is Dr. Margarita Echevarria.
Past History
<Marianela Doll PA-C - Last Filed: 10/14/24 17:50>
Past History
ED Past Medical History: CAD, GERD, HTN, Hypercholesterolemia, HI and Other (Stomach Ulcers, DDD, Diverticulosis, )
ED Past Surgical History: Cardiac (Stents X 2), Orthopedic (Left shoulder surgery), Urological (Spermatic vein ligation) and Other ( hemorrhoids surgery, Hernia, )
Social History
Tobacco: Former smoker
Alcohol: Occasional
Personal:
Living: with family
Review of Systems
<Marianela Doll PA-C - Last Filed: 10/14/24 17:50>
Review of Systems
Allergies reviewed?: Yes
All Other Systems: ROS reviewed and negative except as documented in HPI and ROS
Phy Exam
<Marianela Doll PA-C - Last Filed: 10/14/24 17:50>
Physical Exam
Physical Exam:
Vitals: Mildly hypertensive, otherwise vital signs stable. Afebrile
General: Patient is well appearing, no acute distress
Skin: Warm and dry, no rashes or lesions
Head: Normocephalic, atraumatic
Eyes: Sclera nonicteric. EOMs intact. No nystagmus.
Throat: Protecting airway
Neck: Normal ROM, no cervical spine tenderness, no meningismus
Cardiac: Regular rate and rhythm, no murmurs. No reproducible chest wall tenderness. 2+ palpable radial pulses bilaterally
Pulm: Normal respiratory effort, no wheezes, rales, rhonchi heard on exam
Abdomen: No abdominal tenderness.
Extremities: No evidence of cyanosis or edema
Neuro: AAOx3. Grossly intact.
Psychiatric: Normal affect.
Scores
<Marianela Doll PA-C - Last Filed: 10/14/24 17:50>
Heart Score for Chest Pain Patients
STEMI patient?: No
History: Moderately Suspicious
ECG: Nonspecific Repolarization
Age: >/= 65 years
Risk Factors: >/= 3 Risk Factors or History of CAD
Troponin: >/= 3 x Normal Limit
Heart Score for Chest Pain Patients: 8
Heart Score Risk: 72.7 % MACE over next 6 weeks
Course
<Marianela Doll PA-C - Last Filed: 10/14/24 17:50>
Orders/Labs/Results
Orders:
Orders
10/14/24 12:37
ECG [Electrocardiogram (*1)] Urgent
Reason for Study: Chest Pain
10/14/24 12:38
EKG- Treatment ONCE
10/14/24 13:06
CR Chest - 2 Views Urgent
Comment:
Reason For Exam: chest pressure
10/14/24 13:26
Complete Blood Count/With Diff Urgent
Comprehensive Metabolic Panel Urgent
Troponin I Urgent
10/14/24 14:01
CARDIOLOGY CONSULT Urgent
Consulting Provider: Andre Moreno
Was physician already notified: Yes
10/14/24 14:21
Aspirin Chewable [Low Strength Aspirin] 243 mg PO NOW STA
Heparin 4,000 units IV NOW STA
Nursing to Place Non Medication Order As Directed
Physician Order: PTT 6 hours after initial start of Heparin infusion
Above order entered?: Yes
10/14/24 14:30
Heparin 34729 Units/250 ml 25,000 units in 250 ml IV PER PROTOCOL
Weight to be used for heparin protocol in kilograms (kg):: 82.1
Protocol:: Cardiac Tx/Acute Coronary
PTT Goal Range to be used:: PTT 73 to 111 seconds
Order type:: Initial
INITIAL Infusion Dose (UNITS/KG/hr) & then follow protocol:: 12 units/kg/hr
Infusion Dose in UNITS/hr & then follow protocol (UNITS/hr):: 1,000
INFUSION RATE in mL/hr & then follow protocol (mL/hr):: 10
PTT less than or equal to 64 seconds:: Increase rate by 200 units/hr (+ 2 mL/hr)
PTT 64.1 to 72.9 seconds:: Increase rate by 100 units/hr (+ 1 mL/hr)
PTT 73 to 111 seconds:: Target Range. No change in rate.
PTT 111.1 to 130.9 seconds:: Decrease rate by 100 units/hr (- 1 mL/hr)
PTT 131 to 199.9 seconds:: HOLD for 1 hr. Then decrease rate by 200 units/hr (- 2 mL/hr)
PTT greater than or equal to 200 seconds:: HOLD for 2 hrs & Notify Provider. Then decrease by 200 units/hr (-
2 mL/hr)
Lab follow-up:: Each change, PTT q6h until 2 consecutive are therapeutic. Then PTT
daily.
10/14/24 15:11
Admit/Transfer Patient As Directed
Co-Sign Provider:
Level of Care: Inpatient admission
Assign to:: IVU
Physician / Group: Kell Murray
Diagnosis: chest pain, NSTEMI, unstable angina
Reason for Hospitalization: chest pain, NSTEMI, unstable angina
Expected length of stay greater than two midnights?: Yes
ELOS- Estimated Length of Stay in days: 3
I certify the patient meets the requirements for IP care: Yes
PRN Pain Medication Management As Directed
May give lesser potent ordered pain med per pt: Yes
preference::
Protocol:: Medication orders for pain may be administered in a
manner that supports deferring to patient preference
when the pt is:
- Requesting an ordered lesser potent pain medication.
Least to most potent pain medications are defined
as: acetaminophen < NSAID < tramadol < opioids
(morphine, oxycodone, hydromorphone).
- Requesting a lesser dose of the same medication IF
ORDERED.
- Requesting a less intrusive route of administration
if both routes are prescribed by the provider (PO <
IV).
10/14/24 15:12
Code Status As Directed
Resuscitation Status: Full Code
10/14/24 15:18
Echo 2D MMode Color/Doppler Urgent
Reason for Study: chest pain, elevated trop
10/14/24 20:45
PTT Routine
Abnormal Lab Results
10/14/24
13:26
MCHC 32.9 L g/dL
(33.0-37.0)
Absolute Lymphs (auto) 1.0 L 10^3/uL
(1.2-3.4)
Neutrophils % 80.0 H %
(42.2-75.2)
Lymphocytes % 13.0 L %
(20.5-51.1)
Glucose 105 H mg/dl
(70-99)
Total Bilirubin 1.4 H mg/dl
(0.2-1.3)
Alkaline Phosphatase 30 L U/L
(38-126)
Troponin I 0.277 H* ng/ml
10/14/24 13:26
10/14/24 13:26
Vital Signs
Initial and Last Documented VS:
Initial Vital Signs
Temp Pulse Resp BP Pulse Ox
98.1 F 65 16 135/86 99
10/14/24 12:45 10/14/24 12:45 10/14/24 12:45 10/14/24 12:45 10/14/24 12:45
Last Documented Vital Signs
Temp Pulse Resp BP Pulse Ox
98.1 F 72 14 132/73 96
10/14/24 12:45 10/14/24 16:45 10/14/24 16:45 10/14/24 16:00 10/14/24 16:30
<Mason Arauz MD - Last Filed: 10/14/24 14:24>
Orders/Labs/Results
Orders:
Orders
10/14/24 12:37
ECG [Electrocardiogram (*1)] Urgent
Reason for Study: Chest Pain
10/14/24 12:38
EKG- Treatment ONCE
10/14/24 13:06
CR Chest - 2 Views Urgent
Comment:
Reason For Exam: chest pressure
10/14/24 13:26
Complete Blood Count/With Diff Urgent
Comprehensive Metabolic Panel Urgent
Troponin I Urgent
10/14/24 14:01
CARDIOLOGY CONSULT Urgent
Consulting Provider: Andre Moreno
Was physician already notified: Yes
10/14/24 14:21
Aspirin Chewable [Low Strength Aspirin] 243 mg PO NOW STA
Heparin 4,000 units IV NOW STA
Nursing to Place Non Medication Order As Directed
Physician Order: PTT 6 hours after initial start of Heparin infusion
Above order entered?: Yes
10/14/24 14:30
Heparin [id number] Units/250 ml 25,000 units in 250 ml IV PER PROTOCOL
Weight to be used for heparin protocol in kilograms (kg):: 82.1
Protocol:: Cardiac Tx/Acute Coronary
PTT Goal Range to be used:: PTT 73 to 111 seconds
Order type:: Initial
INITIAL Infusion Dose (UNITS/KG/hr) & then follow protocol:: 12 units/kg/hr
Infusion Dose in UNITS/hr & then follow protocol (UNITS/hr):: 1,000
INFUSION RATE in mL/hr & then follow protocol (mL/hr):: 10
PTT less than or equal to 64 seconds:: Increase rate by 200 units/hr (+ 2 mL/hr)
PTT 64.1 to 72.9 seconds:: Increase rate by 100 units/hr (+ 1 mL/hr)
PTT 73 to 111 seconds:: Target Range. No change in rate.
PTT 111.1 to 130.9 seconds:: Decrease rate by 100 units/hr (- 1 mL/hr)
PTT 131 to 199.9 seconds:: HOLD for 1 hr. Then decrease rate by 200 units/hr (- 2 mL/hr)
PTT greater than or equal to 200 seconds:: HOLD for 2 hrs & Notify Provider. Then decrease by 200 units/hr (-
2 mL/hr)
Lab follow-up:: Each change, PTT q6h until 2 consecutive are therapeutic. Then PTT
daily.
10/14/24 15:11
Admit/Transfer Patient As Directed
Co-Sign Provider:
Level of Care: Inpatient admission
Assign to:: IVU
Physician / Group: Kell Murray
Diagnosis: chest pain, NSTEMI, unstable angina
Reason for Hospitalization: chest pain, NSTEMI, unstable angina
Expected length of stay greater than two midnights?: Yes
ELOS- Estimated Length of Stay in days: 3
I certify the patient meets the requirements for IP care: Yes
PRN Pain Medication Management As Directed
May give lesser potent ordered pain med per pt: Yes
preference::
Protocol:: Medication orders for pain may be administered in a
manner that supports deferring to patient preference
when the pt is:
- Requesting an ordered lesser potent pain medication.
Least to most potent pain medications are defined
as: acetaminophen < NSAID < tramadol < opioids
(morphine, oxycodone, hydromorphone).
- Requesting a lesser dose of the same medication IF
ORDERED.
- Requesting a less intrusive route of administration
if both routes are prescribed by the provider (PO <
IV).
10/14/24 15:12
Code Status As Directed
Resuscitation Status: Full Code
10/14/24 15:18
Echo 2D MMode Color/Doppler Urgent
Reason for Study: chest pain, elevated trop
10/14/24 20:45
PTT Routine
Abnormal Lab Results
10/14/24
13:26
MCHC 32.9 L g/dL
(33.0-37.0)
Absolute Lymphs (auto) 1.0 L 10^3/uL
(1.2-3.4)
Neutrophils % 80.0 H %
(42.2-75.2)
Lymphocytes % 13.0 L %
(20.5-51.1)
Glucose 105 H mg/dl
(70-99)
Total Bilirubin 1.4 H mg/dl
(0.2-1.3)
Alkaline Phosphatase 30 L U/L
(38-126)
Troponin I 0.277 H* ng/ml
10/14/24 13:26
10/14/24 13:26
Vital Signs
Initial and Last Documented VS:
Initial Vital Signs
Temp Pulse Resp BP Pulse Ox
98.1 F 65 16 135/86 99
10/14/24 12:45 10/14/24 12:45 10/14/24 12:45 10/14/24 12:45 10/14/24 12:45
Last Documented Vital Signs
Temp Pulse Resp BP Pulse Ox
98.1 F 72 14 132/73 96
10/14/24 12:45 10/14/24 16:45 10/14/24 16:45 10/14/24 16:00 10/14/24 16:30
<Marianela Doll PA-C - Last Filed: 10/14/24 17:50>
MDM/Problems Addressed
Differential Diagnosis Includes:
Not limited to: Unstable angina, acute coronary syndrome, muscle strain, GERD, pericarditis, myocarditis, etc.
MDM/Problems Addressed:
74-year-old male with 1 month of intermittent exertional chest discomfort with acute worsening today after 50 minutes on elliptical. Symptoms resolved following 1 sublingual nitroglycerin, patient chest pain-free by arrival to ED. No associated
shortness of breath, back pain, diaphoresis. He does note similarity to prior HI. Follows with Dr. Margarita Echevarria his primary modeler. Patient mildly hypertensive, otherwise stable vital signs. Physical exam as above.
History concerning for unstable angina, especially with patient history of known coronary artery disease and multiple stents. Initial EKG shows no STEMI however some ischemic changes in anterior leads relatively unchanged from prior. Shows ED
plan: Labs, serial troponins, cardiology consult.
Update: Troponin elevated to 0.277. Otherwise labs and chest x-ray unremarkable. Clinical picture concerning for unstable angina versus NSTEMI. Aspirin and heparin drip/bolus initiated in ED. Cardiology down to see patient at bedside. Patient
admitted to the hospitalist for further management, possible Band Reamer Machine Operator in morning.
Chronic conditions affecting care:
CAD s/p multiple stents
Acute Exacerbation and/or Progression of Chronic Illness:
Unstable angina, NSTEMI
<Marianela Doll PA-C - Last Filed: 10/14/24 17:50>
*Radiology
Radiology exam reviewed: radiology read reviewed
*Pulse Oximetry
SaO2: 95
Oxygen Mode of Delivery: Room air
Patient hypoxic: no
*EKG
Interpreted by ED Provider?: Yes
EKG Intrepretation Date: 10/14/24
Interpretation: abnormal
Comparison EKG: changes noted
Heart Rate: 66
Rate: normal
Rhythm: sinus
[place]: normal axis
Interval: normal QT interval
QRS Pattern: normal QRS
Ischemia: non-specific ST changes (ST changes/T wave inversions noted in anterior leads)
*[employer] Manager Interpretation
Rate: normal
Interpretation: normal
Heart Rate: 76
Rhythm: sinus
*Critical Care Note
Total Time (30-74mins, 75-104mins- exclusive of procedures): 30
comment:
Critical care statement: A total of 30 minutes of critical care time was provided for this patient. This includes management of unstable vital signs, evaluation of the patient at bedside, reviewing the patient's pertinent medical records, discussion
with consultants, review of old EKGs and review of pertinent medical records. This time with separate from time utilized to perform the aforementioned documented procedures
<Marianela Doll PA-C - Last Filed: 10/14/24 17:50>
Patient Management
Discussion with other providers: Hospitalist and Service Car Driver (Case discussed with cardiology)
Escalation/DeEscalation of care consider admission/obs:
Admit to hospitalist with unstable angina vs NSTEMI -plan for heparin, cardiology consult, possible Band Reamer Machine Operator tomorrow
ED Attending Note
<Marianela Doll PA-C - Last Filed: 10/14/24 17:50>
-
Portions of this chart may have been created with voice recognition software.� Occasional wrong word or��sound alike� substitutions may have occurred due to the inherent limitations of voice recognition software.
<Mason Arauz MD - Last Filed: 10/14/24 14:24>
ED Attending Note
Patient seen and examined by attending physician: Yes
ED Attending Note:
I have seen and evaluated the patient with a [id number] encounter. I have spoken to the advance practicer provider and involved in the medical history, the physical exam, medical decision making.
Evaluation and management service: agree unless noted differently below.
Results interpretation: agree unless noted differently below.
Focused HPI: 74-year-old male with history as noted presents to the ER for evaluation of chest discomfort. Patient reports that he has a history of CAD status post stents and sees Dr. Margarita Echevarria. He reports that he is generally quite active
goes to the gym 5 times a week with 3 of which he commits to cardio. He says over the past few weeks he has noticed that he is having postexertional chest pain after his cardio workouts. Today he did his cardio workout and had chest pain that was
more persistent and did not seem to improve with rest. He says he took an extra dose of his reflux medication thinking that it was indigestion but this did not help. He came home and took a nitroglycerin and he says symptoms generally faded and he
is now asymptomatic. Came to the ER for assessment.
Physical exam: Awake and alert not in distress. Vital signs normal. No cardiac rubs gallops or murmurs. Lungs sound clear. No JVD.
Medical Decision Makin-year-old male presents with progressive exertional chest pains over the past few weeks. He has a known history of CAD. He is currently chest pain-free. Vitals and exam as above. His EKG shows sinus rhythm with no
STEMI but some subtle ST changes in V2 V3 V4 compared to prior. Labs were sent off and ultimately showed elevated troponin at 0.277. Case discussed with cardiology, plan for admission for unstable angina. Will start aspirin and heparin.
Discussed with hospitalist.
Discharge Plan
Departure
Patient Disposition: Admit
Date of Disposition: 10/14/24
Time of Disposition: 14:24
Admit to doctor: Terri
Presentation/result/management discussed w/ accepting MD/DO: Hospitalist
Discharge Problem:
Non-ST elevated myocardial infarction (non-STEMI), Unstable angina
Interventions
Interventions:
*Risk Screen - Suicide Last Done: 10/14/24 12:53
*General Assessment Last Done: 10/14/24 12:53
*Neglect/Abuse Screening Last Done: 10/14/24 12:53
*ED- Fall Risk Assessment Last Done: 10/14/24 12:53
*ED COVID-19 Vaccine History Last Done: 10/14/24 12:53
ED- Cardiac Assessment Last Done: 10/14/24 12:53
[2024-10-14 13:46] LABS: Hematocrit 45.3 % (39.0-52.0); Hemoglobin 14.9 g/dL (13.0-18.0); Mean Corp Hgb Conc. 32.9 g/dL (33.0-37.0); Mean Corpuscular Volume 92.3 fL (80.0-94.0); Nucleated Red Blood Cells % 0 % (-); Platelet Count 216 10^3/uL (130-400); Red Cell Dist. Width 13.3 % (11.5-14.5)
[2024-10-14 14:00] LABS: ALT (SGPT) 24 U/L (0-50); AST (SGOT) 31 U/L (17-59); Albumin 4.8 g/dl (3.5-5.0); Alkaline Phosphatase 30 U/L (38-126); Blood Urea Nitrogen 20 mg/dl (9-20); Calcium 9.2 mg/dl (8.4-10.2); Carbon Dioxide 28 mmol/L (22-30); Chloride 102 mmol/L (98-107); Estimated Creatinine Clearance 57 ml/min; Glucose 105 mg/dl (70-99); Potassium 4.7 mmol/L (3.5-5.1); Sodium 137 mmol/L (135-145); Total Protein 8.1 g/dl (6.3-8.2); eGFR > 60.00
[2024-10-14 14:14] LABS: Troponin I 0.277 ng/ml
--- NOTE | 2024-10-14 14:29 | HPS.HSE ---
Addendum entered and electronically signed by Kell Murray MD 10/14/24 17:13:
This is an addendum to H&P written by Maricel Reyna on 10/14/2024. �Patient seen and examined independent with BACTERIOLOGY TEACHER.
74-year-old male past medical history of CAD with stents, GERD, hypertension, hyperlipidemia, peptic ulcer disease, arthritis presenting with chest pressure while at the gym. �Intermittent over few weeks after going to gym. �No chest pain currently.
Vital signs normal.
Troponin of 0.277. �EKG shows normal sinus rhythm, no clear ischemic changes.
Patient with NSTEMI.
Check A1c and lipid panel. �Aspirin given. �Heparin drip started. �Trend troponins.� Check echo. Cardiology consulted. �N.p.o.past midnight.
Original Note:
Family Physician
-
Family Physician: Andre Moreno
Chief Complaint
-
chest pain
History of Present Illness
Patient is a 74-year-old male with past medical history significant for hypertension, hypercholesterolemia, CAD and GERD who presented to [facility] ED for evaluation of chest pressure. Patient reports being at gym today and did a 50 minute cardio workout
on Elliptical with a few other cardio items post that he then started to do strength training with weights and doing rows when he had acute onset of chest pressure with lightheadedness, bilateral chest and did not radiate. He immediately stopped and
sat down and took a antacid and symptoms resolved on their own after some time. He reports similar symptoms 3-4x this month all immediately post a cardio workout and resolved with rest and antacid. Denies any recent illness, fever, chills,
palpitations, diaphoresis, cough, nausea or vomiting.
Medical History
Past Medical History
Past Medical History: Reports Other
Additional Past Medical History:
hypertension
hypercholesterolemia
CAD
GERD
stomach ulcers
osteoarthritis
Hx NH 1998
Past Surgical History: Reports Other
Additional Past Surgical History:
cardiac stent x2
Left shoulder surgery
spermatic vein ligation
hemorrhoidectomy
open umbilical hernia repair with mesh ([facility]) 12/09/2022
robotic asst lap repair bilateral inguinal hernias with mesh ([facility])
Social History
Tobacco: Former Smoker ( )
Alcohol: Occasional
Drug: None
Personal:
Living: With Family
Employment: Retired
Family History
Family History: Other (Mother: multiple myeloma, CAD; Father: cerebral hemorrhage)
Allergies / Home Medications
Allergies reflects when Allergies were last updated in [employer].
Home Medications with original date entered in [employer]
Allergy/Medication List:
Allergies
Allergy/AdvReac Type Severity Reaction Status Date / Time
Iodinated Contrast Media Allergy flushing, Verified 10/14/24 12:45
feeling hot
Home Medications
aspirin 81 mg tablet,delayed release (Ecotrin Low Strength) 81 mg PO DAILY Blood Clot Prevention/Tx 02/17/16
carvedilol 3.125 mg tablet 3.125 mg PO BID Heart Failure 02/17/16
omeprazole 20 mg capsule,delayed release 20 mg PO DAILY Gastrointestinal Issue 02/17/16
rosuvastatin 40 mg tablet (Crestor) 40 mg PO HS High Cholesterol 02/17/16
Review of Systems
-
History Source: Patient
Constitutional: Reports No Symptoms
EENT: Reports No Symptoms
Respiratory: Denies Trouble Breathing
Cardiac: Reports Chest Pain (chest pressure non-radiating during exercise at gym associated with some lightheadedness ); Denies Diaphoresis, Palpitations or Syncope
Abdomen/GI: Denies Abdominal Pain, Nausea, Vomiting or Diarrhea
: Reports No Symptoms
Musculoskeletal: Reports No Symptoms
Skin: Reports No Symptoms
Neurological: Reports Weakness; Denies Headache or Numbness
Endocrine: Reports No Symptoms
Hematologic/Lymphatic: Reports No Symptoms
Psych: Reports No Symptoms
Physical Exam
Vital Signs
Vital Signs
Temp Pulse Resp BP Pulse Ox
98.1 F 68 18 142/95 95
10/14/24 12:45 10/14/24 13:00 10/14/24 13:00 10/14/24 13:00 10/14/24 13:12
Physical Exam
General: Well Developed, Well Nourished, No Apparent Distress, Comfortable and Conversant
HEENT: NormoCephalic, Moist mucous membranes and Atraumatic
Respiratory: Clear and Non Labored Respirations
Cardiac: S1/S2 and Regular Rhythm; No Murmur, Rub, Gallop or Peripheral Edema
Breast: Deferred by me
GI: Soft, Non Tender, Non Distended and Normal Bowel Sounds; No Organomegaly
Rectal: Deferred by Provider
Genito-urinary: Deferred by me
Musculoskeletal: No Clubbing, No Cyanosis and No Edema
Skin: Warm and IV/Catheter Site
Neuro: Awake, AO x 3 and Nonfocal/grossly intact
Hematologic/Lymphatic: No Lymphadenopathy
Psych: Calm and Intact Judgment/Insight
Laboratory Results
-
10/14/24 13:26
10/14/24 13:26
Laboratory Results
Total Bilirubin 1.4 mg/dl (0.2-1.3) H 10/14/24 13:26
AST 31 U/L (17-59) 10/14/24 13:26
ALT 24 U/L (0-50) 10/14/24 13:26
Alkaline Phosphatase 30 U/L (38-126) L 10/14/24 13:26
Troponin I 0.277 ng/ml H* 10/14/24 13:26
Data Reviewed
-
Diagnostic Radiology: Report Reviewed by me (CXR: Unremarkable chest)
Medical Tests (Nuc Med, Echo, EKG etc): Report Reviewed by me (EKG: NORMAL SINUS RHYTHM ANTERIOR INFARCT , AGE UNDETERMINED)
Lab Data: Labs Reviewed by me (trop 0.277)
Impression/Plan
-
IMPRESSION/PLAN:
#chest pain 2/2 NSTEMI vs. unstable agnina
Trop 0.277
CXR: Unremarkable chest
EKG: NORMAL SINUS RHYTHM
ANTERIOR INFARCT , AGE UNDETERMINED
- Admit to IVU
- Consult Cardiology
- Heparin gtt
- trend troponin
- NPO at midnight for possible lab associate
#hypertension
- continue carvedilol
#hypercholesterolemia
- continue rosuvastatin
#CAD
- continue aspirin
#GERD
- continue omeprazole
Code status: full code
DVT prophylaxis: heparin gtt
[2024-10-14] MEDS: HEPARIN 4000 UNITS IV (14:39)
[2024-10-14] MEDS: LOW STRENGTH ASPIRIN 243 MG PO (14:39)
[2024-10-14] MEDS: HEPARIN 25000 UNITS/250 ML IV (14:48)
--- NOTE | 2024-10-14 15:55 | CON.CAR ---
Addendum entered and electronically signed by Andre Moreno MD 10/14/24 19:40:
74-year-old man with chest pressure following workout on elliptical and relieved by nitroglycerin. 3-4 similar episodes at the gym in the last month. EKG suggests but not definitive for anterior TN that is new since May 2024
PMH: Anterior TN 1998 treated with bare-metal stent, non-ST segment elevation TN April 2023 with 80% proximal LAD stenosis and 70% distal lesion 5 x 28 Xience stent to the proximal LAD, 40 to 50% in-stent restenosis mid to distal LAD, EF by echo
2024 44%, LAD distribution wall motion abnormality
GERD, hypercholesterolemia, erectile dysfunction,, history of herniorrhaphy, elevated lp(a)
Outpatient meds: Per summary screen
142/95, pulse 68, respiratory rate 18, no acute distress, head neck exam unremarkable, lungs are clear, regular rate and rhythm without obvious murmurs, abdomen benign extremities without clubbing cyanosis or edema
ECG: Sinus rhythm, anterior TN, Q waves more prominent than May [address] segment elevation that is new
Chest x-ray sinus rhythm, normal ECG
Hemoglobin 14.9, platelets 216, BUN/creatinine are 20 and 1.2, troponin is 0.288
Impression:
Non-ST segment elevation
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
Non-ST segment elevation TN 2021 status post drug-eluting stent x 2 to LAD
Mild ischemic cardiomyopathy, EF 44%
Hypertension
Hypercholesterolemia
GERD
Plan:
Aspirin, heparin, beta-eliu, statin
Cardiac catheterization in a.m.
Original Note:
Consultation
Consultation Request
Date/Time Consultation Requested: 10/14/2024, 1401
Date/Time Consultation Performed: 10/14/2024, 1500
Requesting Provider: Marianela Doll PA-C
Performing Provider: PAYTON Ko for Dr Moreno
Reason for Consultation: chest pain
Medical History
-
Chief Complaint: chest pressure
History of Present Illness:
74-year-old male with history of anterior TN, coronary artery disease, and mild cardiomyopathy presents with 4 episodes of exertional chest pressure for the over month. He goes to the gym 5 days a week and on the days he does cardio has developed
chest pressure with associated belching towards the end of his workout. He was at the gym today and lifting free weights when he developed chest pressure. He took 1 sublingual nitroglycerin for the first time with relief. He has no other
associated symptoms besides belching. Pressure does not radiate. Symptoms reminiscent of prior MIs in 1998 and 2023. Called cardiology office and was advised to come to ED.
He had an anterior wall TN in 1998 and had a bare-metal stents placed to the mid to distal LAD.
He presented with non-Q wave TN in April 2023 with peak troponin 1.5. Cardiac catheterization in April 2023 showed LAD with proximal 80% and distal 70% lesions. There was 40 to 50% in-stent restenosis of the mid to distal LAD stents from 1998.
Left circumflex OM1 had 50 to 60% stenosis in the proximal region. RCA was small and nondominant with moderate diffuse atherosclerosis. He underwent successful percutaneous intervention to 2 serial proximal to mid LAD stenoses with Xience
drug-eluting stents, which were thought to be the culprit lesions. Medical management was advised for the 40 to 50% in-stent restenosis in the mid to distal LAD stents and the OM1 stenosis.
He completed 1 year of dual antiplatelet therapy with aspirin and Brilinta. Brilinta was stopped in May 2024 and he remains on aspirin.. Aggressive risk factor modification continued with maximum dose rosuvastatin 40 mg daily. He remains on
carvedilol.
Echo 05/15/2024 with EF 44% with apical septum, apical, apical anterior, apical inferior and mid anterior septum hypokinesis. RV was normal. Mild aortic valve sclerosis, PAP 15 to 20 mmHg
ED evaluation 10/14/2024:
EKG: Normal sinus rhythm, anterior TN, no change from prior tracing in 2023
Troponin 0.277, second troponin pending
BUN/creatinine 20/1.2, NA 137, K4.7, glucose 105
Chest x-ray unremarkable
Started on heparin drip and aspirin administered upon arrival.
He has been chest pain-free since arrival.
Past medical history:
Anterior TN 1998
NSTEMI 04/2023
CAD
-s/p bare-metal stents to mid, distal LAD 1998
-s/p GERALDINE to 2 serial prox to mid LAD stenoses 05/02/2023
-LCx OM1 with 50-60% proximal
-RCA small and nondominant with mod diffuse atherosclerosis
Mild cardiomyopathy
Hyperlipidemia
GERD
COVID-19
Past Medical History
Past Medical History: Other
Past Surgical History: Other (Hemorrhoidectomy, open hernia repair with mesh 11/2022, robotic assisted lap repair bilateral inguinal hernias with mesh 03/2023)
Social History
Tobacco: Former Smoker (Smokes occasional cigar)
Alcohol: Occasional (Infrequent)
Family History
Family History: Other (Father age 37, cerebral hemorrhage. Mother age 80 CAD, melanoma)
Allergies / Home Medications
Allergy/AdvReac Type Severity Reaction Status Date / Time
Iodinated Contrast Media Allergy flushing, Verified 10/14/24 12:45
feeling hot
�Medication �Instructions �Recorded �Confirmed �Type
aspirin 81 mg tablet,delayed 81 mg PO DAILY Blood Clot 02/17/16 10/14/24 History
release (Ecotrin Low Strength) Prevention/Tx
carvedilol 3.125 mg tablet 3.125 mg PO BID Heart Failure 02/17/16 10/14/24 History
omeprazole 20 mg capsule,delayed 20 mg PO DAILY Gastrointestinal 02/17/16 10/14/24 History
release Issue
rosuvastatin 40 mg tablet (Crestor) 40 mg PO HS High Cholesterol 02/17/16 10/14/24 History
Review of Systems
-
History Source: Patient
All other systems: Negative unless noted
Physical Exam
Vital Signs
Temp Pulse Resp BP Pulse Ox
98.1 F 78 13 146/85 96
10/14/24 12:45 10/14/24 15:30 10/14/24 15:30 10/14/24 15:00 10/14/24 15:30
GEN: No distress, awake, Ox3
HEENT: supple, anicteric, mmm
LUNGS: CTA, no wheezes/rales
CV: Reg, S1/S2, no murmur
ABD: soft, BS+, NT/ND
EXT: No edema
NEURO: Gross non-focal
SKIN: No rash
Lab Results
10/14/24 13:26
10/14/24 13:26
Troponin I 0.277 ng/ml H* 10/14/24 13:26
Impression / Plan
-
PCP: Andre Moreno
Primary Senior Security Architect: Dr. Margarita Echevarria
Impression:
Presentation with exertional chest pressure, initial trop 0.277
CAD
ant TN 1998 with BMS LAD
NSTEMI 05/03/2023, peak trop 1.5 s/p LAD PCI x2 05/03/23
Mild cardiomyopathy, EF 44% 04/2024 echo
HLD
GERD
history of umbilical hernia repair in 2022 as well as B/L hernia repair
Echo 05/2020: EF 50%, hypokinetic apex along anterior septum, no significant valvular disease
ECHO 05/03/23: EF 49%, apical septum, apex, apical inferior, apical anterior, mid anteroseptum with mod to severe hypokinesis, stage 2 diastolic dysfunction, mildly dilated aortic root, no sig valvular disease
Echo 05/15/2024: EF 44% with apical septum, apical, apical anterior, apical inferior and mild anteroseptal hypokinesis, Normal RV, trivial MR, mild aortic valve sclerosis, PAP 15 to 20 mmHg
Lexiscan nuclear stress test 05/2020: Fixed defect in apical septal, apical anterior, apical lateral, apex and apical inferior segments consistent with prior infarction, EF 42%, moderate risk study, no change compared to prior from 2017
Left heart cath 05/04/2023:
LEFT MAIN: mild diffuse atherosclerotic plaque.
LEFT ANTERIOR DESCENDING: medium to large caliber vessel which gives rise to 2 major diagonal branches. There are 2 serial lesions in the proximal LAD, 70 to 80% proximally and another 70% distally. These were thought to be the culprit of
presenting NSTEMI given wall motion abnormalities noted on echo and thus decision was made to intervene on this - s/p GERALDINE x 2 (Xience). There is also 40 to 50% in-stent restenosis in the mid to distal LAD stents from 1998
CIRCUMFLEX: medium to large caliber dominant vessel which gives rise to 1 medium caliber OM1 and multiple small to medium caliber left posterolateral branches and the left posterior descending artery.
OM1 has a 50 to 60% stenosis in the proximal portion
RIGHT CORONARY ARTERY: The right coronary artery is a small to medium caliber nondominant vessel with moderate diffuse atherosclerotic plaque.
Plan:
-presents to PMDH with one month h/o chest pressure occurring with exertion at gym
-CP reminscent of previous TN and relieved with 1 SL NTG
-trop elevated 0.277, trend to peak
-heparin gtt started
-admit to IVU
-currently CP free
-check echo today
-plan for LHC in a.m.- NPO after MN
-Cr stable at 1.2 (baseline 1.2-1.3)
-Continue aspirin
-cont carvedilol
-LDL 84 08/2024. continue crestor 40mg QPM, consider add Zetia or PCSK9
-d/w nursing
Data Reviewed
-
EKG: Tracing Personally Visualized and interpreted
Labs: Labs Reviewed by me
--- NOTE | 2024-10-14 16:12 | CM ---
Met with patient at the bedside in the ED
Pharmacy verified: [facility] @ [id number]
Patient lives w/ ; split level home; 4 steps to enter; 8 steps between floors; upper level full bath has tub w/ shower
PLOF: reported he was independent with ambulation, stairs, ADLs; active; retired; drives
NO SNF or Home Health utilization history; Went to Outpatient Cardiac Rehab in the past
will transport home
Plan: anticipate home when medically stable; Case Management will monitor for needs and support if/when identified
--- NOTE | 2024-10-14 17:03 | EDRN ---
Baseline PTT: Heparin bolus administered before beginning of this RN's shift. Baseline PTT not ordered and drawn prior to the heparin bolus being administered. This RN jae PTT but elevated and results cancelled by lab. Admitting hospitalist
notified of no baseline PTT. Verbal order to draw PTT at the 6th hour per protocol.
[2024-10-14 17:19] LABS: Troponin I 1.370 ng/ml
--- NOTE | 2024-10-14 18:37 | PTCARENOTE ---
Patient reviewed from the ED. Heparin infusing per APR. Left anterior chest has reproducible tenderness. In chair, watching TV, call moreno in reach
[2024-10-14] MEDS: COREG 3.125 MG PO (20:13)
[2024-10-14 21:06] LABS: APTT 56.2 Sec (23.4-35.0)
[2024-10-14 21:16] LABS: Troponin I 2.080 ng/ml
--- NOTE | 2024-10-14 22:03 | PTCARENOTE ---
Received pt at change of shift OOB in chair. SB-SR w/ PVC's on tele, HR 50's-60's. pt denies any CP or SOB. Ambulating in room. Heparin gtt infusing per protocol. Educated pt on CAD booklet. Encouraged pt to call RN with any questions/concerns. Call
moreno within reach.
[2024-10-14] MEDS: CRESTOR 40 MG PO (22:50)
[2024-10-15] VITALS (17 sets, daily range): BP systolic 97–128; BP diastolic 67–86; BMI 24.8
[2024-10-15 03:52] LABS: Hematocrit 41.0 % (39.0-52.0); Hemoglobin 14.1 g/dL (13.0-18.0); Mean Corp Hgb Conc. 34.4 g/dL (33.0-37.0); Mean Corpuscular Volume 89.5 fL (80.0-94.0); Platelet Count 181 10^3/uL (130-400); Red Cell Dist. Width 13.3 % (11.5-14.5)
[2024-10-15 04:01] LABS: APTT 85.5 Sec (23.4-35.0)
[2024-10-15 04:16] LABS: Blood Urea Nitrogen 21 mg/dl (9-20); Calcium 9.3 mg/dl (8.4-10.2); Carbon Dioxide 25 mmol/L (22-30); Chloride 107 mmol/L (98-107); Estimated Creatinine Clearance 69 ml/min; Glucose 109 mg/dl (70-99); HDL Cholesterol 49 mg/dl; LDL Cholesterol, Calculated 94 mg/dl; Potassium 4.0 mmol/L (3.5-5.1); Sodium 139 mmol/L (135-145); Very Low Density Lipoprotein 16 mg/dl (0-30); eGFR > 60.00
[2024-10-15 04:30] LABS: Troponin I 1.460 ng/ml
[2024-10-15] MEDS: COREG 3.125 MG PO (08:13)
[2024-10-15] MEDS: ASPIR LOW (ENTERIC COATED) 81 MG PO (08:13)
[2024-10-15] MEDS: PROTONIX 40 MG PO (08:13)
--- NOTE | 2024-10-15 08:15 | PTCARENOTE ---
Assumed care of pt from dayshift RN. Walking rounds completed. Pt is AAOx3. Independent in room. Sinus crystal to sinus rhythm on the tele monitor. HR 50-60s. BP stable. Palpable pulses throughout. No edema noted. Pt is on RA. POX 97%. Lung sounds
audible and equal throughout. Abdomen soft/nontender. +BS x4. Voiding w/o issue. Pt currently NPO awaiting cardiac cath. PIV x2 intact. Heparin infusing as ordered and per protocol. Pt updated w/ plan for the day. See worklist for full nursing
assessment and interventions. Call moreno within reach.
[2024-10-15 08:41] LABS: Glycohemoglobin (HgbA1c) 5.6 % (4.0-5.6)
--- NOTE | 2024-10-15 09:47 | W.PN.HOSP.TC ---
Today's Communication/Plan
-
Woolen Tester
Assessment / Plan
Assessment / Plan
Impression:
74-year-old male past medical history of CAD with stents, GERD, hypertension, hyperlipidemia, peptic ulcer disease, arthritis presenting with chest pressure while at the gym. �Intermittent over few weeks after going to gym.
Non-STEMI
Known CAD with prior FL and intervention to LAD.
Ischemic cardiomyopathy with mildly reduced EF
Dyslipidemia
GERD/PUD.
Plan:
Echo 10/14:
1. Mild left ventricular hypertrophy with multiple regional wall motion abnormalities described below, ejection fraction 42-47%.
2. Mild mitral annular calcification, trace mitral regurgitation, and mild left atrial dilatation.
3. Trace aortic regurgitation.
4. Normal right heart with normal pulmonary artery systolic pressure.
5. In April 2024 the ejection fraction was 44% by volumetric methods, similar wall motion abnormalities were seen, though basal inferolateral hypokinesis was not described.
Left heart cath 05/13:
1. Left dominant circulation.
2. Successful percutaneous coronary artery intervention to 2 serial proximal to mid LAD stenosis with one 3.5 x 28 mm Xience alicia point drug-eluting stent, successfully postdilated using IVUS guidance with a 4.0 x 20 mm NC trek balloon at 16 horace
distally and a 4.5 x 12 mm NC trek balloon at 18 horace proximally with an excellent angiographic and IVUS guided result.
3. There are 2 serial lesions in the proximal LAD, 170 to 80% proximally and another 70% distally. These were thought to be the culprit of presenting NSTEMI given wall motion abnormalities noted on echo and thus decision was made to intervene on
this. There is also 40 to 50% in-stent restenosis in the mid to distal LAD stents from 1998.
4. OM1 has a 50 to 60% stenosis in the proximal portion.
5. Normal LVEDP.
ECG on presentation with NSR without ischemic changes
Currently chest pain-free.
Troponin peaked at 2.
Remains on IV heparin.
Plan for Woolen Tester.
Continue aspirin
Continue Coreg, statin,
Prior history of GERD/PUD
On PPI
Anticipated Discharge: 24 - 48 hours
Subjective/Interval History
-
Date of Service: October 15, 2024
Objective Data
-
Labs:
Laboratory Results
10/15/24 10/15/24
03:38 09:40
WBC 5.8
Hgb 14.1
Hct 41.0
Plt Count 181
APTT 85.5 H Pending
Sodium 139
Potassium 4.0
Chloride 107
Carbon Dioxide 25
BUN 21 H
Creatinine 1.0
Glucose 109 H
Calcium 9.3
Vital Signs:
Vital Signs
Temp Pulse Resp BP Pulse Ox
97.9 F 68 13 116/82 97
10/15/24 07:25 10/15/24 08:00 10/15/24 07:25 10/15/24 07:27 10/15/24 07:25
I&O
10/14/24 10/15/24 10/16/24
06:59 06:59 06:59
Intake Total 504 / 504
Balance 504 / 504
Physical Exam
-
General: Well Developed and No Apparent Distress
HEENT: Normocephalic, Atraumatic and Moist Mucous Membranes
Respiratory: Clear to Auscultation
Cardiac: Regular Rhythm and S1/S2; Negative Murmur, Rub or Gallop
GI: Soft, Nontender, Nondistended and Normal Bowel Sounds; Negative Organomegaly
Rectal: Deferred by Provider
Musculoskeletal: No Clubbing, No Cyanosis and No Edema
Skin: Negative Rash
Neuro: Nonfocal/Grossly Intact
[2024-10-15 10:34] LABS: APTT 74.9 Sec (23.4-35.0)
[2024-10-15] MEDS: HEPARIN 25000 UNITS/250 ML IV (12:23)
--- NOTE | 2024-10-15 15:55 | PTCARENOTE ---
Report given to laborer yard nurse. Pt updated. Voided before transfer. Pt transported to [facility] via stretcher by laborer yard nurses.
--- NOTE | 2024-10-15 15:58 | CM ---
spoke to pt in room, he is prev indep, lives with his wifeina split level home with 4 steps to enter. he denies any dc planning needs or dme's. plan mis for dc to home when medically stable.
--- NOTE | 2024-10-15 17:25 | PTCARENOTE ---
Pt back from CCL. Right radial cath site intact. Air band in place. 10 mL. VSS. Site checks as documented. Pt AAOx3. Family contacted. Call moreno within reach.
[2024-10-15] MEDS: PLAVIX 600 MG PO (18:19)
--- NOTE | 2024-10-15 18:58 | ITS.CL.CATH ---
[facility] - Catheterization
Cardiac Catheterization
Procedure Report:
LEFT HEART CATHETERIZATION
Date of Procedure: October 15, 2024
Referring: Dr. Caio Welch
PROCEDURES:
1. Left heart catheterization with coronary and single-plane left ventriculography
INDICATION: This is a 74-year-old gentleman with a prior history of coronary artery disease with remote stenting of the LAD in 1998 in the setting of an evolving anterior wall myocardial infarction. In April 2023 he presented with a non-ST segment
elevation myocardial infarction and underwent coronary angiography. He was found to have tandem high-grade proximal LAD stenosis treated with a 3.5 x 28 mm Xience stent. He is continuing to experience intermittent left lateral chest discomfort
that has been present for many years. More recently he began experiencing exertional chest pressure during periods of exercise. He developed worsened symptoms and presented for further evaluation. His troponin was mildly elevated at 0.277 ng/mL
on admission and increased up to 2.08 ng/mL. He is now referred for coronary angiography
ACCESS: Right radial artery, 6 Palestinian sheath
HEMODYNAMICS : (mmHg)
AO (s/d) : 149/88
LV (s/d) : 144/13
LVEDP : 19
CORONARY FINDINGS
DOMINANCE: Left
LEFT MAIN: 50% ostial/proximal left main stenosis. No pressure dampening occurred with engagement of a 6 Palestinian diagnostic catheter.
LEFT ANTERIOR DESCENDING: The LAD arises normally from the left main and runs in the anterior interventricular groove. The proximal LAD stent from April 2023 remains widely patent. There is a stent in the mid LAD beyond the first diagonal branch
which has diffuse 40-50% in-stent restenosis in the more distal stent in the mid LAD 50-60% in-stent restenosis. The mid to distal LAD has only luminal irregularities.
RAMUS: Small caliber vessel with 60% ostial stenosis.
CIRCUMFLEX: The circumflex is a large-caliber dominant vessel that supplies a large bifurcating OM1 with a 60% proximal stenosis which appears angiographically similar to that noted in April 2023. The circumflex continues in the AV groove is a
large-caliber vessel supplying a large PDA and moderate-sized posterolateral branch.
RIGHT CORONARY ARTERY: Small-medium nondominant vessel with diffuse atherosclerotic disease
VENTRICULOGRAPHY: Left ventriculography is performed in an ABRAMS projection. The digital single-plane left ventricular ejection fraction is estimated at 45% with apical and inferior apical severe hypokinesis/akinesis
SEDATION: 43 minutes of procedural sedation was utilized. An independent medical device sales was present to assist with and help manage the patient's level of consciousness and physiologic status.
RADIATION SUMMARY: Fluoro Time (min): 3.5, Dose (mGy): 253, DAP (Gy.cm2) : 15.1
Closure Device: TR band
CONCLUSIONS
1. Patent proximal LAD stent and angiographically stable coronary anatomy with no obvious culprit causing patient's troponin elevation
2. Ischemic cardiomyopathy with an estimated ejection fraction of 45%
RECOMMENDATIONS
1. Increase antianginal regimen by pushing carvedilol dose from 3.125 to 6.25 mg p.o. twice daily and adding isosorbide mononitrate 30 mg daily
2. LDL cholesterol remains poorly controlled. Have added Zetia to high intensity statin
3. Would continue to titrate antianginal regimen as tolerated. Could consider the addition of amlodipine if blood pressure tolerates or further titration of isosorbide mononitrate.
4. A stress study may help anatomic localization of large ischemic territories if symptoms persist
Copy to: Dr. Margarita Echevarria
[2024-10-15] MEDS: COREG 6.25 MG PO (20:20)
[2024-10-15] MEDS: CRESTOR 40 MG PO (21:57)
--- NOTE | 2024-10-15 22:06 | PTCARENOTE ---
Received pt at change of shift OOB in chair. SB-SR w/ PVC's on tele, HR 50's-60's. pt denies any CP or SOB. Ambulating in room. Right radial site intact with TR band on. Encouraged pt to call RN with any questions/concerns. Call moreno within reach.
TR band removed @ 2151, dressing C.D.I. No bleeding or hematoma noted at this time.
[2024-10-16 02:15] VITALS: BP 104/61
[2024-10-16 02:19] VITALS: BMI 24.8
[2024-10-16 03:18] LABS: Hematocrit 41.1 % (39.0-52.0); Hemoglobin 14.0 g/dL (13.0-18.0); Mean Corp Hgb Conc. 34.1 g/dL (33.0-37.0); Mean Corpuscular Volume 90.9 fL (80.0-94.0); Platelet Count 194 10^3/uL (130-400); Red Cell Dist. Width 13.2 % (11.5-14.5)
[2024-10-16 03:43] LABS: Blood Urea Nitrogen 20 mg/dl (9-20); Calcium 9.1 mg/dl (8.4-10.2); Carbon Dioxide 24 mmol/L (22-30); Chloride 107 mmol/L (98-107); Estimated Creatinine Clearance 63 ml/min; Glucose 105 mg/dl (70-99); Potassium 4.2 mmol/L (3.5-5.1); Sodium 138 mmol/L (135-145); eGFR > 60.00
[2024-10-16 07:24] VITALS: BP 104/76
[2024-10-16] MEDS: ASPIR LOW (ENTERIC COATED) 81 MG PO (07:49)
[2024-10-16] MEDS: PROTONIX 40 MG PO (07:49)
[2024-10-16] MEDS: COREG 6.25 MG PO (07:49)
[2024-10-16] MEDS: IMDUR (EXTENDED RELEASE) 30 MG PO (07:49)
[2024-10-16] MEDS: PLAVIX 75 MG PO (07:49)
--- NOTE | 2024-10-16 09:26 | W.PN.CARDCBS ---
Addendum entered and electronically signed by Lluvia Christian DO 10/16/24 18:27:
I saw and examined the patient.
The Field Laborer's note was reviewed and I agree with the note.
Comment: Patient was seen and examined. Offers no complaints. No chest pain.
GEN: No distress, awake, alert, oriented x3
HEENT: supple, anicteric, mmm, EOMI
LUNGS: CTA bilaterally, no wheezes/rales
CV: Reg, S1/S2, no murmur
ABD: soft, BS+, NT/ND
EXT: No edema. Right radial site c/d/i,no hematoma
Plan:
Non-ST elevation myocardial infarction/unstable angina
-trop peaked at 2
-s/p cath 10/15 with no clear culprit vessel, patent prior stents
-echo with results as above, EF 45%
-coreg was increased to 6.25mg BID and imdur 30mg daily was added
-continue asa. plavix started
-LDL 94. continue crestor 40mg HS, zetia added
-in SR/SB on review of tele overnight
-no issues overnight. patient eager for DC
-if patient with recurrent symptoms, would consider for OP stress testing to further localize area of ischemia
-will arrange OP cardiac follow up
-ok for DC to home today
Original Note:
Today's Communication / Plan
-
Continue aspirin, Plavix
Coreg dose increased to 6.25 mg twice daily this admission
Imdur and Zetia are new
Continue Crestor
will arrange OP cardiac follow-up
Okay for discharge to home today
Impression / Plan
-
PCP: Andre Moreno
Primary Radiographer: Dr. Margarita Echevarria
Impression:
Presentation with exertional chest pressure
NSTEMI, no culprit vessel noted by cath 10/15/24
CAD
ant MA 1998 with BMS LAD
NSTEMI 05/03/2023, peak trop 1.5 s/p LAD PCI x2 05/03/23
Mild ischemic cardiomyopathy, EF 45% 09/2024 echo
HLD
GERD
history of umbilical hernia repair in 2022 as well as B/L hernia repair
Echo 05/2020: EF 50%, hypokinetic apex along anterior septum, no significant valvular disease
ECHO 05/03/23: EF 49%, apical septum, apex, apical inferior, apical anterior, mid anteroseptum with mod to severe hypokinesis, stage 2 diastolic dysfunction, mildly dilated aortic root, no sig valvular disease
Echo 05/15/2024: EF 44% with apical septum, apical, apical anterior, apical inferior and mild anteroseptal hypokinesis, Normal RV, trivial MR, mild aortic valve sclerosis, PAP 15 to 20 mmHg
ECHO 10/14/24: EF 42 to 47%, possible new basal inferolateral hypokinesis noted, mild MAC, trace MR, mild LA dilatation, trace AR, normal right heart
Lexiscan nuclear stress test 05/2020: Fixed defect in apical septal, apical anterior, apical lateral, apex and apical inferior segments consistent with prior infarction, EF 42%, moderate risk study, no change compared to prior from 2016
Left heart cath 05/04/2023:
LEFT MAIN: mild diffuse atherosclerotic plaque.
LEFT ANTERIOR DESCENDING: medium to large caliber vessel which gives rise to 2 major diagonal branches. There are 2 serial lesions in the proximal LAD, 70 to 80% proximally and another 70% distally. These were thought to be the culprit of
presenting NSTEMI given wall motion abnormalities noted on echo and thus decision was made to intervene on this - s/p GERALDINE x 2 (Xience). There is also 40 to 50% in-stent restenosis in the mid to distal LAD stents from 1998
CIRCUMFLEX: medium to large caliber dominant vessel which gives rise to 1 medium caliber OM1 and multiple small to medium caliber left posterolateral branches and the left posterior descending artery.
OM1 has a 50 to 60% stenosis in the proximal portion
RIGHT CORONARY ARTERY: The right coronary artery is a small to medium caliber nondominant vessel with moderate diffuse atherosclerotic plaque.
Plan:
-presents to PM with one month h/o chest pressure occurring with exertion at gym
-CP reminiscent of previous MA and relieved with 1 SL NTG
-trop peaked at 2
-s/p cath 10/15 with no clear culprit vessel, patent prior stents
-echo with results as above, EF 45%
-coreg was increased to 6.25mg BID and imdur 30mg daily was added
-continue asa. plavix started
-LDL 94. continue crestor 40mg HS, zetia added
-in SR/SB on review of tele overnight
-no issues overnight. patient eager for DC
-if patient with recurrent symptoms, would consider for OP stress testing to further localize area of ischemia
-will arrange OP cardiac follow up
-ok for DC to home today
-d/w nursing. d/w hospitalist via TT
Progress Note - Radiographer
Subjective
Date of Service: October 16, 2024
No issues overnight. Eager for discharge
Objective
Labs:
10/16/24 02:26
10/16/24 02:26
Labs
Hgb 14.0 g/dL (13.0-18.0) 10/16/24 02:26
Hct 41.1 % (39.0-52.0) 10/16/24 02:26
Plt Count 194 10^3/uL (130-400) 10/16/24 02:26
APTT Cancelled 10/16/24 06:00
Sodium 138 mmol/L (135-145) 10/16/24 02:26
Potassium 4.2 mmol/L (3.5-5.1) 10/16/24 02:26
BUN 20 mg/dl (9-20) 10/16/24 02:26
Creatinine 1.1 mg/dL (0.7-1.3) 10/16/24 02:26
Glucose 105 mg/dl (70-99) H 10/16/24 02:26
Troponins
10/14/24 10/14/24 10/14/24
13:26 16:40 17:47
Troponin I 0.277 H* 1.370 H* D Cancelled
10/14/24 10/14/24 10/14/24
20:39 20:47 23:47
Troponin I 2.080 H* D Cancelled Cancelled
10/15/24
03:38
Troponin I 1.460 H* D
Vital Signs and I&O:
Vital Signs
Temp Pulse Resp BP Pulse Ox
98.0 F 93 16 104/76 98
10/16/24 07:25 10/16/24 08:30 10/16/24 07:25 10/16/24 07:24 10/16/24 07:25
Vital Signs
Temp Pulse Resp BP Pulse Ox
98.0 F 93 16 104/76 98
10/16/24 07:25 10/16/24 08:30 10/16/24 07:25 10/16/24 07:24 10/16/24 07:25
Intake & Output
10/14/24 10/15/24 10/16/24 10/17/24
07:59 07:59 07:59 07:59
Intake Total 504 / 516 276 / 276
Balance 504 / 516 276 / 276
Physical Exam
Physical Exam
GEN: No distress, awake, alert, oriented x3
HEENT: supple, anicteric, mmm, EOMI
LUNGS: CTA bilaterally, no wheezes/rales
CV: Reg, S1/S2, no murmur
ABD: soft, BS+, NT/ND
EXT: No cyanosis, clubbing, edema
NEURO: Gross non-focal
SKIN: Warm, pink, dry. No rash. Right wrist site soft, clean dry and intact
--- NOTE | 2024-10-16 10:11 | CM ---
Reviewed chart. Met with Mr. Alcantar to review discharge plans. He states prior to admission he resides with his spouse in a spilt level home with four steps to enter. He stats he has eight steps to get to each level. His bedroom/full bathroom on the
upper level. He states prior to admission he was independent with ambulation and adls. He states he does not have any DME in the home. He states he has a prescription plan. Medical work-up in progress. The discharge plan is to return home with
his spouse when medically stable.
--- NOTE | 2024-10-16 10:25 | W.DS.TRANS ---
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
-
Discharge Instructions:
Discharge Diagnosis/Procedures CAD.
Diet Low Cholesterol
Activity As tolerated
Driving Restrictions No driving for 24 hours
Instructions:
Stand-Alone Forms: DC Instructions- Cath/EP Lab
Changes to Home Medications: Yes
Discharge Medications:
DC Medications w/original date entered in [facility]
aspirin 81 mg tablet,delayed release (Ecotrin Low Strength) 81 mg PO DAILY Blood Clot Prevention/Tx 02/17/16
omeprazole 20 mg capsule,delayed release 20 mg PO DAILY Gastrointestinal Issue 02/17/16
rosuvastatin 40 mg tablet (Crestor) 40 mg PO HS High Cholesterol 02/17/16
carvedilol 6.25 mg tablet 6.25 mg PO BID #60 tabs 10/16/24
clopidogrel 75 mg tablet 75 mg PO DAILY #30 tabs 10/16/24
ezetimibe 10 mg tablet 10 mg PO DAILY #30 tabs 10/16/24
isosorbide mononitrate 30 mg tablet,extended release 24 hr 30 mg PO DAILY #30 tabs 10/16/24
Home Medication Changes
Continue aspirin, Plavix
Coreg dose increased to 6.25 mg twice daily this admission
Pending Results: No
[2024-10-16 11:24] VITALS: BP 106/73
--- NOTE | 2024-10-16 14:01 | PN.CDI ---
CDI
- -
CDI:
Physician Documentation Request
Admit Date: 10/14/24 15:31
Dear Doctor Lawrence,
Clinical Indicators:
Patient admitted with chest pain.
10/15 Cath report, 'Patent proximal LAD stent and angiographically stable coronary anatomy with no obvious culprit causing patient's troponin elevation.'
Coreg increased to 6.25 mg po bid and isosorbide 30 mg po daily ordered.
10/16 Discharge Summary, ' Acute coronary syndrome Known ST-elevation myocardial infarction with known coronary artery disease.'
Please clarify the suspected or likely etiology of the chest pain, such as:
N STEMI
CAD with angina (please specify stable or unstable)
Other, please specify
Use of terms such as suspected, likely, concern for, or probable (associated with a specific diagnosis that is being evaluated, monitored, or treated as if it exists) are acceptable and can be coded in the inpatient setting, when documented at the
time of discharge.
Thank you,
CABRERA Jose RN
CDI Specialist
available via tiger text
Please use your independent medical judgment in providing your response.
== END 2024-10-16 12:47 | disposition home or self-care (01) | DRG 282 ==
LOC: IVU 15:31
PROVIDERS: Internal Medicine Interventional Cardiology; Nurse Practitioner; Nurse Practitioner Family; Physician Assistant; ADMITTING PHYSICIAN Hospitalist; ATTENDING PHYSICIAN Internal Medicine; CONSULT PHYSICIAN Internal Medicine Cardiovascular Disease; EMERGENCY PHYSICIAN Emergency Medicine; FAMILY PHYSICIAN Family Medicine
PROC: B215YZZ Fluoroscopy of Left Heart using Other Contrast (ICD-10-PCS; 2024-10-15)
PROC: B211YZZ Fluoroscopy of Multiple Coronary Arteries using Other Contrast (ICD-10-PCS; 2024-10-15)
PROC: 4A023N7 Measurement of Cardiac Sampling and Pressure, Left Heart, Percutaneous Approach (ICD-10-PCS; 2024-10-15)
DX: I21.4 Non-ST elevation (NSTEMI) myocardial infarction (principal); I25.10 Atherosclerotic heart disease of native coronary artery without angina pectoris; I24.9 Acute ischemic heart disease, unspecified; E78.00 Pure hypercholesterolemia, unspecified; K21.9 Gastro-esophageal reflux disease without esophagitis; M19.90 Unspecified osteoarthritis, unspecified site; I25.2 Old myocardial infarction; I25.5 Ischemic cardiomyopathy; Z87.891 Personal history of nicotine dependence; Z91.041 Radiographic dye allergy status; Z87.11 Personal history of peptic ulcer disease; Z82.49 Family history of ischemic heart disease and other diseases of the circulatory system; Z79.899 Other long term (current) drug therapy; Z79.82 Long term (current) use of aspirin
CPT/HCPCS: 71046; 80048; 80053; 80061; 83036; 84484; 85025; 85027; 85730; 93005; 93306; 93458; 96374; 96376; 99152; 99153; 99291; C1894; Q9967

== ENCOUNTER 2025-01-13 16:22 | Outpatient (RCR) | payer OTHER, SELFPAY | END 2025-01-13 23:59 | disposition home or self-care (01) | LOC: CRHB 16:22 | PROVIDERS: ATTENDING PHYSICIAN Internal Medicine Cardiovascular Disease | DX: I21.4 Non-ST elevation (NSTEMI) myocardial infarction (principal); I25.10 Atherosclerotic heart disease of native coronary artery without angina pectoris (principal); I25.2 Old myocardial infarction (principal); Z95.5 Presence of coronary angioplasty implant and graft | CPT/HCPCS: 93797; 93798; G0422; G0423 ==

== ENCOUNTER → 2025-02-04 08:47 | Outpatient (REF) | payer OTHER, SELFPAY | LOC: RAD 08:47 | PROVIDERS: ATTENDING PHYSICIAN Internal Medicine Cardiovascular Disease; FAMILY PHYSICIAN Family Medicine | DX: I65.29 Occlusion and stenosis of unspecified carotid artery (principal) | CPT/HCPCS: 93880 ==

== ENCOUNTER 2025-02-10 16:28 | Outpatient (RCR) | payer OTHER, SELFPAY | END 2025-02-10 23:59 | disposition home or self-care (01) | LOC: CRHB 16:28 | PROVIDERS: ATTENDING PHYSICIAN Internal Medicine Cardiovascular Disease; FAMILY PHYSICIAN Family Medicine | DX: I25.2 Old myocardial infarction (principal); I25.10 Atherosclerotic heart disease of native coronary artery without angina pectoris (principal); I21.4 Non-ST elevation (NSTEMI) myocardial infarction (principal) | CPT/HCPCS: 93798; G0422 ==